=== PATIENT | female | born 1935 | race Caucasian/White ===

== ENCOUNTER 2017-01-13 02:32 | Emergency (ER) | payer MEDICARE, OTHER ==
[2017-01-13 03:04] VITALS: BP 179/69
--- NOTE | 2017-01-13 03:18 | EDM.PDOC ---
ED HPI GENERAL MEDICAL PROBLEM - General Chief Complaint: Cardiovascular Problem Stated Complaint: HIGH BP Time Seen by Provider: 01/13/17 02:55 Source of Information: Reports: Patient History Limitations: Reports: No Limitations - History of Present Illness INITIAL COMMENTS - FREE TEXT/NARRATIVE: ED with family, reports waking with some dizziness and pain to nape of neck tonight. Checked BP and elevated 180's at home, Notified daughter and brought to ED. Recently had metoprolol decreased by PCP as BP low and HR in 40's. Has had US done but unsure of what, awaiting results and has follow up scheduled. Admits hx anxiety. No chest pain or palpations noted. o nausea, no blurring of vision. Onset: Today Duration: Hour(s): Severity: Mild Worsens with: Reports: Movement Associated Symptoms: Denies: Confusion, Diaphoresis, Fever/Chills, Nausea/ Vomiting, Shortness of Breath, Weakness - Related Data Allergies Allergy/AdvReac Type Severity Reaction Status Date / Time Penicillins Allergy Diarrhea Verified 01/13/17 03:05 Home Meds: Home Meds Chlorthalidone 12.5 mg PO DAILY 01/13/17 [History] Losartan [Cozaar] 50 mg PO DAILY 01/13/17 [History] Metoprolol Tartrate [Metoprolol Tartrate] 25 mg PO BID 01/13/17 [History] Past Medical History Cardiovascular History: Reports: Hypertension - Past Surgical History GI Surgical History: Reports: Cholecystectomy Social & Family History - Family History Cardiac: Reports: OK Oncologic: Reports: Breast - Tobacco Use Smoking Status *Q: Never Smoker Second Hand Smoke Exposure: Yes - Caffeine Use Caffeine Use: Reports: Coffee - Recreational Drug Use Recreational Drug Use: No ED ROS GENERAL - Review of Systems Review Of Systems: See Below Constitutional: Reports: No Symptoms HEENT: Reports: No Symptoms Respiratory: Reports: No Symptoms Cardiovascular: Reports: Blood Pressure Problem GI/Abdominal: Reports: No Symptoms Musculoskeletal: Reports: No Symptoms Skin: Reports: No Symptoms Neurological: Reports: Headache. Denies: Syncope, Tingling, Tremors, Weakness, Change in Speech, Gait Disturbance Psychiatric: Reports: Anxiety ED EXAM, GENERAL - Physical Exam Exam: See Below Exam Limited By: No Limitations General Appearance: Alert, Anxious, Mild Distress Eye Exam: Bilateral Eye: EOMI, PERRL (4mm) Ears: Normal External Exam, Normal TMs Nose: Normal Inspection Throat/Mouth: Normal Inspection, Normal Lips, Normal Oropharynx, No Airway Compromise Head: Atraumatic, Normocephalic Neck: Normal Inspection, Non-Tender, Full Range of Motion Respiratory/Chest: No Respiratory Distress, Lungs Clear, Normal Breath Sounds, No Accessory Muscle Use Cardiovascular: Normal Peripheral Pulses, Regular Rate, Rhythm, No Edema GI/Abdominal: Normal Bowel Sounds, Soft Back Exam: Normal Inspection Extremities: Normal Inspection, Normal Range of Motion Neurological: Alert, Oriented, CN II-XII Intact, Normal Cognition, Normal Gait, No Motor/Sensory Deficits Psychiatric: Anxious Skin Exam: Warm, Dry, Intact, Normal Color Course - Vital Signs Last Recorded V/S: Last Vital Signs Temp 97.2 F 01/13/17 02:50 Pulse 86 01/13/17 02:50 Resp 16 01/13/17 02:50 BP 179/69 H 01/13/17 02:50 Pulse Ox 100 01/13/17 02:50 - Orders/Labs/Meds Orders: Active Orders 24 hr Category Date Time Status RT Aerosol Therapy [RC] ASDIRECTED Care 01/13/17 04:59 Active Labs: Laboratory Tests 01/13/17 01/13/17 01/13/17 Range/Units 03:20 03:20 03:20 WBC 3.6 L (5.0-10.0) 10^3/uL RBC 4.87 (4.2-5.4) 10^6/uL Hgb 14.5 (12.0-16.0) g/dL Hct 41.0 (37.0-47.0) % MCV 84.2 (80-100) fL MCH 29.8 (27.0-34.0) pg MCHC 35.4 H (33.0-35.0) g/dL Plt Count 156 (150-450) 10^3/uL Neut % (Auto) 57.1 (42.2-75.2) % Lymph % (Auto) 28.6 (20.5-50.1) % Liberty % (Auto) 12.9 H (2-8) % Eos % (Auto) 1.1 (1.0-3.0) % Baso % (Auto) 0.3 (0.0-1.0) % PT (9.0-12.0) SEC INR (0.9-1.2) Sodium 132 L (135-145) mmol/L Potassium 3.7 (3.6-5.0) mmol/L Chloride 96 L (101-111) mmol/L Carbon Dioxide 24.0 (21.0-31.0) mmol/L Anion Gap 15.7 BUN 12 (7-18) mg/dL Creatinine 0.6 (0.6-1.3) mg/dL Est Cr Clr Drug Dosing 53.90 mL/min Estimated GFR (MDRD) > 60 BUN/Creatinine Ratio 20.00 Glucose 110 H (74-105) mg/dL Calcium 9.9 (8.4-10.2) mg/dl Total Bilirubin 1.0 (0.2-1.0) mg/dL AST 24 (10-42) IU/L ALT 27 (10-60) IU/L Alkaline Phosphatase 77 (42-121) IU/L CK-MB (CK-2) 2.10 (0.4-4.7) ng/mL Troponin I < 0.02 (0.00-0.02) ng/ml B-Natriuretic Peptide 88 (0-100) pg/ml Total Protein 7.2 (6.7-8.2) g/dl Albumin 4.7 (3.2-5.5) g/dl Globulin 2.5 Albumin/Globulin Ratio 1.88 08/03/17 Range/Units 03:20 WBC (5.0-10.0) 10^3/uL RBC (4.2-5.4) 10^6/uL Hgb (12.0-16.0) g/dL Hct (37.0-47.0) % MCV (80-100) fL MCH (27.0-34.0) pg MCHC (33.0-35.0) g/dL Plt Count (150-450) 10^3/uL Neut % (Auto) (42.2-75.2) % Lymph % (Auto) (20.5-50.1) % Liberty % (Auto) (2-8) % Eos % (Auto) (1.0-3.0) % Baso % (Auto) (0.0-1.0) % PT 9.4 (9.0-12.0) SEC INR 0.9 (0.9-1.2) Sodium (135-145) mmol/L Potassium (3.6-5.0) mmol/L Chloride (101-111) mmol/L Carbon Dioxide (21.0-31.0) mmol/L Anion Gap BUN (7-18) mg/dL Creatinine (0.6-1.3) mg/dL Est Cr Clr Drug Dosing mL/min Estimated GFR (MDRD) BUN/Creatinine Ratio Glucose (74-105) mg/dL Calcium (8.4-10.2) mg/dl Total Bilirubin (0.2-1.0) mg/dL AST (10-42) IU/L ALT (10-60) IU/L Alkaline Phosphatase (42-121) IU/L CK-MB (CK-2) (0.4-4.7) ng/mL Troponin I (0.00-0.02) ng/ml B-Natriuretic Peptide (0-100) pg/ml Total Protein (6.7-8.2) g/dl Albumin (3.2-5.5) g/dl Globulin Albumin/Globulin Ratio Meds: Medications Discontinued Medications Generic Name Dose Route Start Last Admin Trade Name Freq PRN Reason Stop Dose Admin Albuterol/Ipratropium 3 ml 01/13/17 04:59 01/13/17 05:06 Duoneb 3.0-0.5 Mg/3 Ml NEB 01/13/17 05:00 3 ml ONETIME ONE Administration Famotidine 20 mg 01/13/17 04:22 01/13/17 04:26 Pepcid IVPUSH 01/13/17 04:23 20 mg ONETIME ONE Administration Labetalol HCl 10 mg 01/13/17 03:39 01/13/17 04:16 Normodyne IVPUSH 01/13/17 03:40 10 mg NOW ONE Administration Protocol Lorazepam 0.5 mg 01/13/17 04:55 01/13/17 05:06 Ativan IVPUSH 01/13/17 04:56 0.5 mg ONETIME ONE Administration Lorazepam Confirm 01/13/17 05:36 Ativan Administered 01/13/17 05:37 Dose 0.5 mg .ROUTE .STK-MED ONE Lorazepam 0.5 mg 01/13/17 05:36 Ativan PO 01/13/17 05:37 .STK-MED ONE Ondansetron HCl 4 mg 01/13/17 04:22 01/13/17 04:28 Zofran IV 01/13/17 04:23 4 mg ONETIME ONE Administration - Radiology Interpretation Free Text/Narrative:: head CT negative, - Re-Assessments/Exams Free Text/Narrative Re-Assessment/Exam: BP improved, HR stable 70-80's symptoms resolved. Less anxious after CT results discussed. Neuro intact. Departure - Departure Time of Disposition: 05:53 Disposition: Home, Self-Care 01 Condition: Good Clinical Impression: Hypertensive heart disease Qualifiers: Heart failure presence: without heart failure Qualified Code(s): I11.9 - Hypertensive heart disease without heart failure Gastroesophageal reflux disease Qualifiers: Esophagitis presence: esophagitis presence not specified Qualified Code(s): K21.9 - Gastro-esophageal reflux disease without esophagitis Instructions: Hypertension, [id number] Forms: ED Department Discharge Additional Instructions: follow up with Dr Ochoa this week low acid foods Urgent follow up if weakness, or chest pain, lorazepam 0.5mg every 8 hours prn severe anxiety - My Orders Last 24 Hours: My Active Orders 01/13/17 04:59 RT Aerosol Therapy [RC] ASDIRECTED - Assessment/Plan Last 24 Hours: My Active Orders 01/13/17 04:59 RT Aerosol Therapy [RC] ASDIRECTED
[2017-01-13] MEDS ORDERED: Labetalol 20 MG/4 ML Syringe IVPUSH ONE (03:39)
[2017-01-13 03:45] LABS: CHLORIDE,CL 96 mmol/L (101-111); SODIUM,NA 132 mmol/L (135-145)
[2017-01-13] MEDS ORDERED: Famotidine 20 MG/2 ML SDV IVPUSH ONE (04:22)
[2017-01-13] MEDS ORDERED: Ondansetron 4 MG/2 ML SDV IV ONE (04:22)
[2017-01-13] MEDS ORDERED: LORazepam 2 MG/ML Syringe IVPUSH ONE (04:55)
[2017-01-13] MEDS ORDERED: Albuterol/Ipratropium 3.0-0.5 MG/3 ML Neb Soln NEB ONE (04:59)
[2017-01-13] MEDS ORDERED: LORazepam 0.5 MG Tab PO ONE (05:36)
[2017-01-13] MEDS ORDERED: LORazepam 0.5 MG Tab ONE (05:36)
--- NOTE | 2017-01-18 09:53 | EKG ---
01/13/2017- DONTE HOLLEY - EKG per my reading shows sinus rhythm at the rate of [address] depression. [facility] /[id number]
== END 2017-01-13 06:13 | disposition home or self-care (01) ==
LOC: DL.ED 02:32
DX: I11.9 Hypertensive heart disease without heart failure (principal); K21.9 Gastro-esophageal reflux disease without esophagitis; Z88.0 Allergy status to penicillin; Z79.899 Other long term (current) drug therapy; Z90.49 Acquired absence of other specified parts of digestive tract
CPT/HCPCS: 36415; 70450; 71010; 80053; 82553; 83880; 84484; 85025; 85610; 93005; 94640; 96374; 96375; 99284; A9270; J2060; J2405; 93010; S0028

== ENCOUNTER 2017-04-01 17:13 | Inpatient (IN) | payer MEDICARE, OTHER ==
[2017-04-01] MEDS ORDERED: Ondansetron 4 MG/2 ML SDV IVPUSH PRN (18:27)
[2017-04-01] MEDS ORDERED: Acetaminophen 325 MG Tab PO PRN (18:27)
[2017-04-01] MEDS ORDERED: hydrALAZINE 20 MG/ML SDV IVPUSH PRN (18:33)
[2017-04-01] MEDS ORDERED: Meclizine 12.5 MG Tab PO PRN (18:35)
[2017-04-01] MEDS: Sodium Chloride 0.9% 1,000 ML IV SCH (19:35)
[2017-04-01] MEDS ORDERED: Omeprazole 20 MG Cap.CR PO SCH (21:00)
[2017-04-01] MEDS ORDERED: Omeprazole 20 MG Cap.CR PO PRN (21:10)
[2017-04-01] MEDS: Lactulose Soln 10 GM/15 ML 30 ML UD Cup PO SCH (21:15)
[2017-04-01] MEDS: Losartan 50 MG Tab PO SCH (21:16)
[2017-04-01] MEDS: Metoprolol Tartrate 25 MG Tab PO SCH ×2 (21:16→21:18)
[2017-04-01] MEDS: Heparin Sodium 5,000 Units/ML Vial SUBCUT SCH (21:17)
--- NOTE | 2017-04-02 00:24 | HP ---
CHIEF COMPLAINT: Dizziness. HISTORY OF PRESENT ILLNESS: Ms. Iram Grajeda is a 81-year-old female with medical history of hypertension, osteoporosis, and recurrent sinusitis. The patient presents to the clinic today complaining of dizziness and constipation. Has not had a bowel movement for 3 days until today. Abdomen feels bloated. Has associated nausea, but no vomiting. She also complains of headache, which is at the left temporal area. It is not bounding. She has been complaining of dizziness for the past 1 month following a fall. She was evaluated with a CT scan and that was unremarkable. Denies chest pain. No fever, chills, or rigors. Denies dysuria, frequency, or micturition. The patient's blood pressure has been quite erratic. She was found to have significantly elevated blood pressure today, systolically 196, and also was found to have severe hyponatremia with sodium of 119 and was referred to the hospital for admission. REVIEW OF SYSTEMS: A 10-point review of systems performed. No other pertinent findings except as noted above. PAST MEDICAL HISTORY: Hypertension, osteoporosis, asymptomatic sinusitis, degenerative disk disease, chronic kidney disease, and anxiety. FAMILY HISTORY: Reviewed and considered noncontributory. SOCIAL HISTORY: Does not smoke. Does not drink alcohol. OBJECTIVE: General: The patient is alert and oriented to place, time, and person. Head: Atraumatic and normocephalic. Ears, Nose, and Throat: Unremarkable. Neck: Supple. Chest: Clear to auscultation. Cardiovascular System: Regular rate and rhythm. Abdomen: Soft and nontender. Extremities: No pedal edema. No finger clubbing. Skin: No rash. Neurologic: Grossly nonfocal. Endocrine: No thyromegaly. Vital Signs: Systolic blood pressure is 196. Oxygenation is normal. LABORATORY DATA: Potassium is 3.4 and sodium is 119. Glucose is 130. Total bilirubin is 1.9. ASSESSMENT: 1. Hypertensive urgency. The patient has severely elevated blood pressure. Anxiety is probably a factor. Recently, there have been some adjustments to her antihypertensives, reduction in metoprolol. That may also be a contributing factor. 2. Hyponatremia. This is likely due to hydrochlorothiazide. She is also on spironolactone. 3. Gastroesophageal reflux disease, asymptomatic at this point. 4. Constipation. PLAN: 1. Admit the patient to medical floor. 2. Start the patient on saline. 3. Check serum sodium every 4 hours. 4. Sample sent for random urine sodium. 5. Random urine creatinine. 6. Intravenous hydralazine. 7. Increase losartan to 100 mg daily. 8. Restart metoprolol. 9. Monitor vital signs every 4 hours. 10.Start the patient on lactulose for constipation. Chart reviewed. Discussed with Dr. Ochoa. [facility] /[id number]
[2017-04-02] MEDS: Heparin Sodium 5,000 Units/ML Vial SUBCUT SCH ×3 (05:20→21:49)
[2017-04-02 08:08] LABS: CHLORIDE,CL 91 mmol/L (101-111); SODIUM,NA 126 mmol/L (135-145)
[2017-04-02] MEDS: Sodium Chloride 0.9% 1,000 ML IV SCH ×2 (08:57→22:01)
[2017-04-02] MEDS: Metoprolol Tartrate 25 MG Tab PO SCH (08:58)
[2017-04-02] MEDS: Losartan 50 MG Tab PO SCH (08:58)
[2017-04-02] MEDS: Lactulose Soln 10 GM/15 ML 30 ML UD Cup PO SCH ×2 (08:58→20:36)
[2017-04-02] MEDS ORDERED: guaiFENesin 600 MG Tab.ER PO SCH (10:00)
[2017-04-02] MEDS ORDERED: Metoprolol Tartrate 25 MG Tab PO ONE (10:25)
[2017-04-02] MEDS: Metoprolol Tartrate 50 MG Tab PO SCH ×2 (10:26→21:50)
--- NOTE | 2017-04-02 10:54 | PN ---
DATE: 04/02/2017 SUBJECTIVE: Patient offers no new complaints today. Did have bowel movement. She was constipated, but had a bowel movement after taking lactulose. Denies dizziness. REVIEW OF SYSTEMS: Constitutional, cardiac, respiratory, gastrointestinal, genitourinary system were reviewed. No other pertinent findings except as noted above. OBJECTIVE: General: Alert and oriented to place, time, and person. Chest: Good air entry bilaterally. Cardiovascular: Regular rate and rhythm. Abdomen: Soft, nontender. Extremities: No edema. LABORATORY DATA: Sodium is 126 today. ASSESSMENT: 1. Severe accelerated hypertension. Blood pressure was markedly elevated. Improving. 2. Hyponatremia. This is secondary to diuretic therapy, hydrochlorothiazide and spironolactone. 3. Gastroesophageal reflux disease. The patient is asymptomatic. 4. Constipation, improved. 5. Dizziness, etiology is unclear. PLAN: 1. Intravenous normal saline at 75 mL an hour. 2. Serial sodium. 3. Obtain repeat basic metabolic panel. 4. Start the patient on fluid restriction of 1500 mL every 24 hours. 5. Continue lactulose. 6. Increase metoprolol to 50 mg b.i.d. Blood pressure is still elevated though improved. [facility] /[id number]
[2017-04-03] MEDS: Heparin Sodium 5,000 Units/ML Vial SUBCUT SCH (05:36)
[2017-04-03 08:34] LABS: SODIUM,NA 134 mmol/L (138-146)
[2017-04-03 08:35] LABS: CHLORIDE,CL 97 mmol/L (98-109)
[2017-04-03] MEDS ORDERED: Magnesium Citrate Solution 296 ML Bottle PO ONE (08:46)
[2017-04-03] MEDS: Lactulose Soln 10 GM/15 ML 30 ML UD Cup PO SCH (08:50)
[2017-04-03] MEDS: Losartan 50 MG Tab PO SCH (08:57)
[2017-04-03] MEDS: Metoprolol Tartrate 50 MG Tab PO SCH (08:58)
[2017-04-03 10:45] VITALS: BP 128/48
--- NOTE | 2017-04-04 06:27 | DISCH ---
FINAL DIAGNOSES: 1. Severe hyponatremia. 2. Severe accelerated hypertension. 3. Gastroesophageal reflux disease. 4. Constipation. 5. Dizziness. SUMMARY OF HOSPITAL COURSE: Ms. Iram Grajeda is a 81-year-old lady with history of hypertension, osteoporosis, and degenerative disease of the spine. She also has chronic kidney disease and anxiety. She presented to the clinical with complaint of dizziness and constipation. The patient was found to have a markedly elevated blood pressure, systolic over 200. She also was found to have hyponatremia, sodium of 119. She got admitted to the hospital and started on intravenous fluid. She had been on chlorthalidone which was felt was responsible for her hyponatremia. This was stopped. We increased the dose of metoprolol, losartan, and other antihypertensives. Blood pressure improved. With intravenous saline, the patient's serum sodium is back to 134. She will have repeat basic metabolic panel in 1 week. The patient did receive lactulose during hospitalization for constipation. Also received magnesium citrate. She has been advised to follow up with primary MD. PHYSICAL EXAMINATION: General: The patient is alert, oriented to place, time, and person. Head: Atraumatic and normocephalic. Ear, Nose, and throat: Unremarkable. Chest: Clear to auscultation. Abdomen: Soft, nontender. Extremities: No pedal edema. No finger clubbing. Skin: No rash. Neuro: Symmetric strength in all extremities. [facility] /[id number]
== END 2017-04-03 14:00 | disposition home or self-care (01) | DRG 641 ==
LOC: DL.MS 17:13 → UNDOADMIN 17:13 → DL.MS 18:27
PROVIDERS: ADMIT Hospitalist; ATTEND Hospitalist
DX: E87.1 Hypo-osmolality and hyponatremia (principal); K21.9 Gastro-esophageal reflux disease without esophagitis; I16.0 Hypertensive urgency; K59.00 Constipation, unspecified; R42 Dizziness and giddiness; M81.0 Age-related osteoporosis without current pathological fracture; I12.9 Hypertensive chronic kidney disease with stage 1 through stage 4 chronic kidney disease, or unspecified chronic kidney disease; N18.9 Chronic kidney disease, unspecified; F41.9 Anxiety disorder, unspecified; T50.0X5A Adverse effect of mineralocorticoids and their antagonists, initial encounter; T50.2X5A Adverse effect of carbonic-anhydrase inhibitors, benzothiadiazides and other diuretics, initial encounter; Z79.899 Other long term (current) drug therapy
CPT/HCPCS: 36415; 71010; 80048; 82570; 84295; 84300; A9270-GY; J7030

== ENCOUNTER 2017-04-15 05:30 | Day surgery (SDC) | payer MEDICARE, OTHER ==
[2017-04-15] MEDS ORDERED: Midazolam 1 MG/ML 2 ML SDV IV ONE ×6 (05:31→06:49)
[2017-04-15] MEDS ORDERED: fentaNYL 100 MCG/2 ML SDV IV ONE ×3 (05:31→06:40)
[2017-04-15] MEDS ORDERED: Dextrose 5%-0.45% NaCl 1,000 ML IV SCH (06:00)
[2017-04-15] MEDS ORDERED: fentaNYL 100 MCG/2 ML SDV ONE (06:16)
[2017-04-15] MEDS ORDERED: Midazolam 1 MG/ML 2 ML SDV ONE (06:16)
--- NOTE | 2017-04-15 07:44 | OR ---
DATE: 04/15/2017 PROCEDURE PERFORMED: Total colonoscopy. INSTRUMENT USED: PCF-H180AL Olympus videocolonoscope. PREMEDICATIONS: Fentanyl 100 mcg intravenous, Versed 2.5 mg intravenous. Nasal O2 cannula. The procedure was done under pulse oximetry, BP recording, and panel monitor. INDICATION: The patient with progressive constipation and related abdominal pain unexplained and not responsive to medical measures. Colonoscopic examination is done for detection of any polypoid lesions and removal, endoscopic hemostasis therapy if needed. DESCRIPTION OF PROCEDURE: Initial rectal exam was unremarkable. Rigid anoscopy was normal. The colonoscope was passed with ease. Few scattered diverticula were noted in the distal left colon along with deformity. The scope was passed with relative ease up to the ileocecal area. Photographs were taken of the normal-appearing cecum identified by double-bulged ileocecal folds. The colon was found to be tortuous and redundant. No bleeding was noted from any of the visualized areas at the commencement of the examination. No stricture. No vascular ectasia. No large isolated ulcerations seen. No evidence of diffuse inflammatory bowel disease in the form of friability, contact bleeding, or ulcerations. No polyp or tumor mass identified. Probing the proximal sides of folds and flexures, using adequate distention and clearing of the stool material, withdrawal of the scope was made, cecum to rectum time over 6 minutes. No bleeding was noted from any of the visualized areas at the completion of the examination. IMPRESSION: Diverticulosis. The patient tolerated the procedure well. [facility] /[id number]
[2017-04-15 10:23] VITALS: BP 165/49
[2017-04-15] MEDS ORDERED: Sodium Chloride 0.9% 10 ML Syringe FLUSH PRN (10:54)
== END 2017-04-15 09:05 | disposition home or self-care (01) ==
LOC: DL.ENDO 05:30
PROVIDERS: ATTEND Internal Medicine Gastroenterology
DX: K57.30 Diverticulosis of large intestine without perforation or abscess without bleeding (principal); I10 Essential (primary) hypertension; F41.1 Generalized anxiety disorder; Z90.49 Acquired absence of other specified parts of digestive tract; Z88.0 Allergy status to penicillin; Z88.1 Allergy status to other antibiotic agents
CPT/HCPCS: 45378; J2250; J3010; J7042

== ENCOUNTER 2017-06-03 12:55 | Inpatient (IN) | payer MEDICARE, OTHER ==
[2017-06-03] MEDS ORDERED: Sodium Chloride 0.9% 10 ML Syringe FLUSH PRN (13:29)
--- NOTE | 2017-06-03 13:29 | EDM.PDOC ---
ED HPI GENERAL MEDICAL PROBLEM - General Chief Complaint: Neuro Symptoms/Deficits Stated Complaint: SODIUM OFF?, [id number] Time Seen by Provider: 06/03/17 13:28 Source of Information: Reports: Patient, Family (daughter), RN, RN Notes Reviewed History Limitations: Reports: Altered Mental Status - History of Present Illness INITIAL COMMENTS - FREE TEXT/NARRATIVE: Arrives from home by POV with pt reporting confusion that began last Tuesday, but improved during the week, then returned 2 days ago. Yesterday pt went [place] a [place] and a friend noticed the confusion and notified the pt's daughter. The daughter noticed the confusion as well and states that it is very similar to when the pt's sodium became very low. Pt reports a Hx of confusion with hyponatremia on several occasions in the past. Denies headache, visual changes, hallucinations, slurred speech, expressive aphasia, swallowing difficulties, numbness, tingling, facial droop, motor or sensory deficits, or any lateralizing neurologic changes. Duration: Waxing/Waning Severity: Moderate Improves with: Reports: None Worsens with: Reports: None Associated Symptoms: Reports: No Other Symptoms - Related Data Allergies Allergy/AdvReac Type Severity Reaction Status Date / Time amoxicillin Allergy Diarrhea Verified 04/15/17 06:04 doxycycline Allergy Diarrhea Verified 04/15/17 06:04 Penicillins Allergy Diarrhea Verified 04/15/17 06:04 Home Meds: Home Meds Sertraline [Zoloft] 25 mg PO BEDTIME 04/01/17 [History] Chlorpheniramine Maleate 4 mg PO BID PRN 04/02/17 [History] Ranitidine [Zantac] 150 mg PO DAILY PRN 04/02/17 [History] Metoprolol Tartrate [Lopressor] 50 mg PO Q12H #90 tablet 04/03/17 [Rx] Calcium Carbonate/Vitamin D3 [Calcium 600 + Vit D 200] 1 tab PO BID 04/14/17 [ History] Losartan [Cozaar] 75 mg PO DAILY 04/14/17 [History] Psyllium Husk [Metamucil] 1 tbsp PO DAILY 06/03/17 [History] Past Medical History HEENT History: Reports: Otitis Media, Sinusitis Cardiovascular History: Reports: Hypertension Respiratory History: Reports: None Gastrointestinal History: Reports: GERD Genitourinary History: Reports: Other (See Below) Other Genitourinary History: CKD stage II 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: , Spontaneous Musculoskeletal History: Reports: Osteoporosis, Other (See Below) Other Musculoskeletal History: degenerative joint disease Neurological History: Reports: None Psychiatric History: Reports: Anxiety, Panic Attack Endocrine/Metabolic History: Reports: Other (See Below) (Confusion with hyponatremia) Hematologic History: Reports: None Immunologic History: Reports: None Oncologic (Cancer) History: Reports: None Dermatologic History: Reports: Psoriasis - Infectious Disease History Infectious Disease History: Reports: Chicken Pox, Measles, Mumps - Past Surgical History Head Surgeries/Procedures: Reports: None HEENT Surgical History: Reports: None Cardiovascular Surgical History: Reports: None Respiratory Surgical History: Reports: None GI Surgical History: Reports: Appendectomy, Cholecystectomy, Colonoscopy Female Surgical History: Reports: None Musculoskeletal Surgical History: Reports: None Social & Family History - Family History Family Medical History: Noncontributory Cardiac: Reports: AR Oncologic: Reports: Breast - Tobacco Use Smoking Status *Q: Never Smoker Second Hand Smoke Exposure: No - Caffeine Use Caffeine Use: Reports: Tea - Recreational Drug Use Recreational Drug Use: No Drug Use in Last 12 Months: No - Living Situation & Occupation Living situation: Reports: Alone Occupation: Retired ED ROS GENERAL - Review of Systems Review Of Systems: ROS reveals no pertinent complaints other than HPI. ED EXAM, GENERAL - Physical Exam Exam: See Below Exam Limited By: Altered Mental Status General Appearance: Alert, WD/WN, No Apparent Distress Eye Exam: Bilateral Eye: EOMI, Normal Fundi, Normal Inspection, PERRL Ears: Normal External Exam, Normal Canal, Hearing Grossly Normal, Normal TMs Nose: Normal Inspection, Normal Mucosa, No Blood Throat/Mouth: Normal Inspection, Normal Lips, Normal Teeth, Normal Gums, Normal Oropharynx, Normal Voice, No Airway Compromise Head: Atraumatic, Normocephalic Neck: Normal Inspection, Supple, Non-Tender, Full Range of Motion Respiratory/Chest: No Respiratory Distress, Lungs Clear, Normal Breath Sounds, No Accessory Muscle Use, Chest Non-Tender Cardiovascular: Normal Peripheral Pulses, Regular Rate, Rhythm, No Edema, No Gallop, No JVD, No Murmur, No Rub GI/Abdominal: Normal Bowel Sounds, Soft, Non-Tender, No Distention Back Exam: Normal Inspection Extremities: Normal Inspection Neurological: Alert, Oriented (oriented to person, place), CN II-XII Intact, Normal Cognition, Normal Gait, No Motor/Sensory Deficits Psychiatric: Normal Affect, Normal Mood Skin Exam: Warm, Dry, Intact, Normal Color, No Rash Course - Vital Signs Last Recorded V/S: Last Vital Signs Temp 36.9 C 06/03/17 15:24 Pulse 57 L 06/03/17 15:24 Resp 16 06/03/17 15:24 BP 184/57 H 06/03/17 15:24 Pulse Ox 100 06/03/17 15:24 - Orders/Labs/Meds Orders: Active Orders 24 hr Category Date Time Status Peripheral IV Care [RC] . DIRECTED Care 06/03/17 13:29 Active TROPONIN I [CHEM] Stat Lab 06/03/17 16:10 Ordered Sodium Chloride 0.9% [Saline Flush] Med 06/03/17 13:29 Active 10 ml FLUSH ASDIRECTED PRN Peripheral IV Insertion Adult [OM.PC] Stat Oth 06/03/17 13:29 Ordered Medication Orders Sodium Chloride (Saline Flush) 10 ml FLUSH ASDIRECTED PRN PRN Reason: Keep Vein Open Labs: Laboratory Tests 06/03/17 06/03/17 06/03/17 Range/Units 13:14 13:41 13:41 WBC 5.4 (5.0-10.0) 10^3/uL RBC 4.46 (4.2-5.4) 10^6/uL Hgb 13.3 (12.0-16.0) g/dL Hct 38.8 (37.0-47.0) % MCV 87.0 (80-100) fL MCH 29.8 (27.0-34.0) pg MCHC 34.3 (33.0-35.0) g/dL Plt Count 156 (150-450) 10^3/uL Neut % (Auto) 71.6 (42.2-75.2) % Lymph % (Auto) 15.8 L (20.5-50.1) % [place] % (Auto) 11.7 H (2-8) % Eos % (Auto) 0.7 L (1.0-3.0) % Baso % (Auto) 0.2 (0.0-1.0) % Sodium 132 L (135-145) mmol/L Potassium 3.5 L (3.6-5.0) mmol/L Chloride 97 L (101-111) mmol/L Carbon Dioxide 29.0 (21.0-31.0) mmol/L Anion Gap 9.5 BUN 10 (7-18) mg/dL Creatinine 0.6 (0.6-1.3) mg/dL Est Cr Clr Drug Dosing 53.90 mL/min Estimated GFR (MDRD) > 60 BUN/Creatinine Ratio 16.66 Glucose 167 H (74-105) mg/dL POC Glucose 176 H (83-110) mg/dl Calcium 9.3 (8.4-10.2) mg/dl Total Bilirubin 1.0 (0.2-1.0) mg/dL AST 32 (10-42) IU/L ALT 41 (10-60) IU/L Alkaline Phosphatase 85 (42-121) IU/L Total Protein 6.6 L (6.7-8.2) g/dl Albumin 4.2 (3.2-5.5) g/dl Globulin 2.4 Albumin/Globulin Ratio 1.75 Urine Color (YELLOW) Urine Appearance (CLEAR) Urine pH (5.0-9.0) Ur Specific [place] (1.005-1.030) Urine Protein (NEGATIVE) Urine Glucose (UA) (NEGATIVE) Urine Ketones (NEGATIVE) Urine Occult Blood (NEGATIVE) Urine Nitrite (NEGATIVE) Urine Bilirubin (NEGATIVE) Urine Urobilinogen (0.2-1.0) mg/dL Ur Leukocyte Esterase (NEGATIVE) Urine RBC /HPF Urine WBC (0-5/HPF) /HPF Ur Epithelial Cells /HPF Urine Bacteria (0-FEW/HPF) /HPF Urine Mucus /LPF Urine Opiates Screen (NEGATIVE) Ur Oxycodone Screen (NEGATIVE) Urine Methadone Screen (NEGATIVE) Ur Barbiturates Screen (NEGATIVE) U Tricyclic Antidepress (NEGATIVE) Ur Phencyclidine Scrn (NEGATIVE) Ur Amphetamine Screen (NEGATIVE) U Methamphetamines Scrn (NEGATIVE) Urine MDMA Screen (NEGATIVE) U Benzodiazepines Scrn (NEGATIVE) Urine Cocaine Screen (NEGATIVE) U Marijuana (THC) Screen (NEGATIVE) 06/03/17 06/03/17 Range/Units 14:49 14:49 WBC (5.0-10.0) 10^3/uL RBC (4.2-5.4) 10^6/uL Hgb (12.0-16.0) g/dL Hct (37.0-47.0) % MCV (80-100) fL MCH (27.0-34.0) pg MCHC (33.0-35.0) g/dL Plt Count (150-450) 10^3/uL Neut % (Auto) (42.2-75.2) % Lymph % (Auto) (20.5-50.1) % [place] % (Auto) (2-8) % Eos % (Auto) (1.0-3.0) % Baso % (Auto) (0.0-1.0) % Sodium (135-145) mmol/L Potassium (3.6-5.0) mmol/L Chloride (101-111) mmol/L Carbon Dioxide (21.0-31.0) mmol/L Anion Gap BUN (7-18) mg/dL Creatinine (0.6-1.3) mg/dL Est Cr Clr Drug Dosing mL/min Estimated GFR (MDRD) BUN/Creatinine Ratio Glucose (74-105) mg/dL POC Glucose (83-110) mg/dl Calcium (8.4-10.2) mg/dl Total Bilirubin (0.2-1.0) mg/dL AST (10-42) IU/L ALT (10-60) IU/L Alkaline Phosphatase (42-121) IU/L Total Protein (6.7-8.2) g/dl Albumin (3.2-5.5) g/dl Globulin Albumin/Globulin Ratio Urine Color Yellow (YELLOW) Urine Appearance Cloudy (CLEAR) Urine pH 7.0 (5.0-9.0) Ur Specific [place] 1.010 (1.005-1.030) Urine Protein Negative (NEGATIVE) Urine Glucose (UA) Negative (NEGATIVE) Urine Ketones Negative (NEGATIVE) Urine Occult Blood Small H (NEGATIVE) Urine Nitrite Negative (NEGATIVE) Urine Bilirubin Negative (NEGATIVE) Urine Urobilinogen 0.2 (0.2-1.0) mg/dL Ur Leukocyte Esterase Negative (NEGATIVE) Urine RBC 10-20 H /HPF Urine WBC 0-5 (0-5/HPF) /HPF Ur Epithelial Cells Few /HPF Urine Bacteria Rare (0-FEW/HPF) /HPF Urine Mucus Rare /LPF Urine Opiates Screen Negative (NEGATIVE) Ur Oxycodone Screen Negative (NEGATIVE) Urine Methadone Screen Negative (NEGATIVE) Ur Barbiturates Screen Negative (NEGATIVE) U Tricyclic Antidepress Negative (NEGATIVE) Ur Phencyclidine Scrn Negative (NEGATIVE) Ur Amphetamine Screen Negative (NEGATIVE) U Methamphetamines Scrn Negative (NEGATIVE) Urine MDMA Screen Negative (NEGATIVE) U Benzodiazepines Scrn Negative (NEGATIVE) Urine Cocaine Screen Negative (NEGATIVE) U Marijuana (THC) Screen Negative (NEGATIVE) Meds: Medications Generic Name Dose Route Start Last Admin Trade Name Freq PRN Reason Stop Dose Admin Sodium Chloride 10 ml 06/03/17 13:29 Saline Flush FLUSH ASDIRECTED PRN Keep Vein Open - Radiology Interpretation Free Text/Narrative:: CT Head: no acute process per Rad. report. Departure - Departure Time of Disposition: 16:04 (Admitted to Dr. Montes) Disposition: Refer to Observation Condition: Fair Clinical Impression: Altered mental status Qualifiers: Altered mental status type: disorientation Qualified Code(s): R41.0 - Disorientation, unspecified - Discharge Information Forms: ED Department Discharge - My Orders Last 24 Hours: My Active Orders 06/03/17 13:29 Peripheral IV Care [RC] . DIRECTED Sodium Chloride 0.9% [Saline Flush] 10 ml FLUSH ASDIRECTED PRN Peripheral IV Insertion Adult [OM.PC] Stat 06/03/17 16:10 TROPONIN I [CHEM] Stat - Assessment/Plan Last 24 Hours: My Active Orders 06/03/17 13:29 Peripheral IV Care [RC] . DIRECTED Sodium Chloride 0.9% [Saline Flush] 10 ml FLUSH ASDIRECTED PRN Peripheral IV Insertion Adult [OM.PC] Stat 06/03/17 16:10 TROPONIN I [CHEM] Stat
[2017-06-03 14:06] LABS: CHLORIDE,CL 97 mmol/L (101-111); SODIUM,NA 132 mmol/L (135-145)
[2017-06-03] MEDS ORDERED: Acetaminophen 325 MG Tab PO PRN (16:53)
[2017-06-03] MEDS ORDERED: Ondansetron 4 MG/2 ML SDV IVPUSH PRN (16:53)
[2017-06-03] MEDS ORDERED: Polyethylene Glycol 3350 Powder 17 GM Packet PO PRN (16:53)
[2017-06-03] MEDS ORDERED: RANITIDINE 150 MG PO PRN (16:59)
[2017-06-03] MEDS ORDERED: Metoprolol Tartrate 50 MG Tab PO SCH (17:00)
[2017-06-03] MEDS ORDERED: Sodium Chloride 0.9% 1,000 ML IV SCH (17:00)
--- NOTE | 2017-06-03 18:04 | PCM.HP ---
H&P History of Present Illness - General Date of Service: 06/03/17 Admit Problem/Dx: Admission Diagnosis/Problem Admission Diagnosis/Problem Confusion Source of Information: Patient History Limitations: Reports: No Limitations - History of Present Illness Initial Comments - Free Text/Narative: 81-year-old female with the past medical history of hypertension, osteoporosis, dizziness, confusion, chronic kidney disease, arthritis, anxiety present to the emergency room for having confusion started last Tuesday for 2 days then get better then started again yesterday. She was at [facility] yesterday and was noticed by a friend that she was confused. The friend contacted daughter. Daughter saw the patient and she stated that she had similar confusion in the past when she had low sodium. Patient denies fever, chills, nausea, vomiting, chest pain, shortness breath, palpitation, headache, change in vision, abdominal pain, diarrhea, constriction, blood in stool, black stool, urinary symptoms, unilateral weakness/numbness/tingling, rash, lower extreme edema, any other symptoms or concern. WBC 5.4 hemoglobin 13.3. Sodium 132. Potassium 3.5. Chloride 97. Creatinine 0.6. UN 10. Blood glucose 176. Troponin less than 0.02. LFTs are normal. UA is negative for nitrate and leukocyte esterase. Urine RBC 10-20. Urine WBC 0-5. Urine bacteria rare. Urine drug screen is negative. CT of head reported no acute findings. Patient was admitted to the floor for observation. - Related Data Allergies/Adverse Reactions: Allergies Allergy/AdvReac Type Severity Reaction Status Date / Time amoxicillin Allergy Diarrhea Verified 06/03/17 16:54 doxycycline Allergy Diarrhea Verified 06/03/17 16:54 Penicillins Allergy Diarrhea Verified 06/03/17 16:54 Home Medications: Home Meds Sertraline [Zoloft] 25 mg PO BEDTIME 04/01/17 [History] Chlorpheniramine Maleate 4 mg PO BID PRN 04/02/17 [History] Ranitidine [Zantac] 150 mg PO DAILY PRN 04/02/17 [History] Metoprolol Tartrate [Lopressor] 50 mg PO Q12H #90 tablet 04/03/17 [Rx] Calcium Carbonate/Vitamin D3 [Calcium 600 + Vit D 200] 1 tab PO BID 04/14/17 [ History] Losartan [Cozaar] 75 mg PO DAILY 04/14/17 [History] Psyllium Husk [Metamucil] 1 tbsp PO DAILY 06/03/17 [History] Past Medical History HEENT History: Reports: Otitis Media, Sinusitis Cardiovascular History: Reports: Hypertension Respiratory History: Reports: COPD Gastrointestinal History: Reports: GERD Genitourinary History: Reports: Other (See Below) Other Genitourinary History: CKD stage II 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: , Spontaneous Musculoskeletal History: Reports: Osteoporosis, Other (See Below) Other Musculoskeletal History: degenerative joint disease Neurological History: Reports: None Psychiatric History: Reports: Anxiety, Panic Attack Endocrine/Metabolic History: Reports: Osteoporosis Hematologic History: Reports: None Other Hematologic History: hyponatremia requiring hospitalization Immunologic History: Reports: None Oncologic (Cancer) History: Reports: None Dermatologic History: Reports: Psoriasis - Infectious Disease History Infectious Disease History: Reports: Chicken Pox - Past Surgical History Head Surgeries/Procedures: Reports: None HEENT Surgical History: Reports: None Cardiovascular Surgical History: Reports: None Respiratory Surgical History: Reports: None GI Surgical History: Reports: Appendectomy, Cholecystectomy, Colonoscopy Female Surgical History: Reports: None Musculoskeletal Surgical History: Reports: None Social & Family History - Family History Family Medical History: Noncontributory Cardiac: Reports: OR Oncologic: Reports: Breast - Tobacco Use Smoking Status *Q: Never Smoker Second Hand Smoke Exposure: No - Caffeine Use Caffeine Use: Reports: Coffee, Tea - Recreational Drug Use Recreational Drug Use: No Drug Use in Last 12 Months: No - Living Situation & Occupation Living situation: Reports: Alone Occupation: Retired H&P Review of Systems - Review of Systems: Review Of Systems: ROS reveals no pertinent complaints other than HPI. Exam - Exam Exam: See Below - Vital Signs Vital Signs: Last Vital Signs Temp 36.9 C 06/03/17 15:24 Pulse 57 L 06/03/17 15:24 Resp 16 06/03/17 15:24 BP 184/57 H 06/03/17 15:24 Pulse Ox 100 06/03/17 15:24 Weight: 44.77 kg - Exam General: Alert, Oriented (Patient was oriented to person and place. She does not know the date but she knew we are in May but thought in 2017), Cooperative. No: Mild Distress, Moderate Distress, Severe Distress, Sedated, Lethargic, Obtunded HEENT: Conjunctiva Clear, EACs Clear, EOMI, Hearing Intact, Mucosa Moist & Ririe , Nares Patent, Normal Nasal Septum, Posterior Pharynx Clear, Pupils Equal, Pupils Reactive, TMs Clear Neck: Supple, Trachea Midline Lungs: Clear to Auscultation, Normal Respiratory Effort. No: Decreased Breath Sounds, Crackles, Rales, Rhonchi, Rub, Stridor, Wheezing Cardiovascular: Regular Rate, Regular Rhythm, Normal S1, Normal S2 GI/Abdominal Exam: Normal Bowel Sounds, Soft, Non-Tender, No Organomegaly, No Distention, No Abnormal Bruit, No Mass (Female) Exam: Deferred Rectal (Female) Exam: Deferred Back Exam: Normal Inspection, Full Range of Motion. No: CVA Tenderness (L), CVA Tenderness (R) Extremities: Normal Inspection, Normal Range of Motion, Non-Tender, No Pedal Edema, Normal Capillary Refill Skin: Dry, Intact. No: Rash Neurological: Cranial Nerves Intact, Normal Speech, Normal Tone, Sensation Intact Neuro Extensive - Mental Status: Alert Psychiatric: Alert, Normal Affect, Normal Mood. No: Anxious, Depressed, Suicidal Ideation, Homicidal Ideation - Patient Data Result Diagrams: 06/03/17 13:41 06/03/17 13:41 *Q Meaningful Use (ADM) - VTE *Q VTE Criteria *Q: - Stroke *Q Stroke Criteria *Q: - AMI *Q AMI Criteria *Q: - Problem List (1) Essential hypertension SNOMED Code(s): 75328770 ICD Code: I10 - ESSENTIAL (PRIMARY) HYPERTENSION Status: Chronic Current Visit: Yes (2) Altered mental status SNOMED Code(s): 020900691 ICD Code: R41.82 - ALTERED MENTAL STATUS, UNSPECIFIED Status: Acute Current Visit: Yes Qualifiers: Altered mental status type: disorientation Qualified Code(s): R41.0 - Disorientation, unspecified (3) Gastroesophageal reflux disease SNOMED Code(s): 845951607 ICD Code: K21.9 - GASTRO-ESOPHAGEAL REFLUX DISEASE WITHOUT ESOPHAGITIS Status: Chronic Current Visit: No Qualifiers: Esophagitis presence: esophagitis presence not specified Qualified Code(s) : K21.9 - Gastro-esophageal reflux disease without esophagitis (4) Chronic kidney disease SNOMED Code(s): 309708926 ICD Code: N18.9 - CHRONIC KIDNEY DISEASE, UNSPECIFIED Status: Chronic Current Visit: Yes (5) Recurrent sinusitis SNOMED Code(s): 321241968 ICD Code: J32.9 - CHRONIC SINUSITIS, UNSPECIFIED Status: Chronic Current Visit: Yes Problem List Initiated/Reviewed/Updated: Yes Orders Last 24hrs: Active Orders 24 hr Category Date Time Status Patient Status [ADT] Routine ADT 06/03/17 16:53 Active Antiembolic Devices [RC] PER UNIT ROUTINE Care 06/03/17 16:55 Active Cardiac Monitoring [RC] CONTINUOUS Care 06/03/17 16:54 Active Height and Weight [RC] DAILY Care 06/03/17 16:53 Active Intake and Output [RC] Q6H Care 06/03/17 16:54 Active Notify Provider Vital Signs [RC] ASDIRECTED Care 06/03/17 16:54 Active Oxygen Therapy [RC] PRN Care 06/03/17 16:53 Active Up With Assistance [RC] ASDIRECTED Care 06/03/17 16:53 Active VTE/DVT Education [RC] PER UNIT ROUTINE Care 06/03/17 16:53 Active Vital Signs [RC] Q4H Care 06/03/17 16:53 Active Heart Healthy Diet [DIET] Diet 06/03/17 Breakfast Active BASIC METABOLIC PANEL,BMP [CHEM] AM Lab 06/04/17 05:11 Ordered CBC WITH AUTO DIFF [HEME] AM Lab 06/04/17 05:11 Ordered CULTURE URINE [RM] Stat Lab 06/03/17 14:49 Received Acetaminophen [Tylenol] Med 06/03/17 16:53 Active 650 mg PO Q4H PRN Calcium Carbonate/Vitamin D3 Med 06/03/17 21:00 Pending 1 tab PO BID Losartan [Cozaar] Med 06/04/17 09:00 Active 75 mg PO DAILY Metoprolol Tartrate [Lopressor] Med 06/03/17 21:00 Active 50 mg PO BID@0900,2100 Ondansetron [Zofran] Med 06/03/17 16:53 Active 4 mg IVPUSH Q6H PRN Polyethylene Glycol 3350 [MiraLAX] Med 06/03/17 16:53 Active 17 gm PO DAILY PRN Ranitidine [Zantac] Med 06/03/17 16:59 Pending 150 mg PO DAILY PRN Sertraline [Zoloft] Med 06/03/17 21:00 Pending 25 mg PO BEDTIME Sodium Chloride 0.9% [Normal Saline] 1,000 ml Med 06/03/17 17:00 Active IV ASDIRECTED Antiembolic Hose [OM.PC] Per Unit Routine Oth 06/03/17 16:55 Ordered Sequential Compression Device [OM.PC] Per Unit Routine Oth 06/03/17 16:55 Ordered Resuscitation Status Routine Resus Stat 06/03/17 16:53 Ordered Medication Orders Acetaminophen (Tylenol) 650 mg PO Q4H PRN PRN Reason: Pain (Mild 1-3)/fever Sodium Chloride (Normal Saline) 1,000 mls @ 125 mls/hr IV ASDIRECTED MALACHI Stop: 06/04/17 00:59 Losartan Potassium (Cozaar) 75 mg PO DAILY MALACHI Metoprolol Tartrate (Lopressor) 50 mg PO BID@0900,2100 MALACHI Calcium Carbonate/ (Vitamin D3 1 Tab) 1 tab PO BID MALACHI Ranitidine [Zantac] (150mg) 150 mg PO DAILY PRN PRN Reason: Heartburn Sertraline [Zoloft] (25mg) 25 mg PO BEDTIME MALACHI Ondansetron HCl (Zofran) 4 mg IVPUSH Q6H PRN PRN Reason: Nausea/Vomiting Polyethylene Glycol (Miralax) 17 gm PO DAILY PRN PRN Reason: Constipation Sodium Chloride (Saline Flush) 10 ml FLUSH ASDIRECTED PRN PRN Reason: Keep Vein Open Assessment/Plan Comment:: Impression 81-year-old female who presented with recurrent altered mental status. It seems to be multifactorial. However her blood pressure is elevated. Patient seems to have hypertensive urgency. Patient lives by herself. One of her medications on the list is chlorpheniramine which could cause confusion however patient stated that she hasn't taken it for a long time. Plan Hydralazine 25 mg by mouth every 6 hours as needed for systolic blood pressure better than 160 and/or the side blood pressure greater than 110. Continue metoprolol and losartan Stop chlorpheniramine Start IV fluid of normal saline at 1 25 mL per hour for 1 L. Reassess fluid need in the morning Up with real estate administrative assistant Intake and output Daily weight Continue home medication except chlorpheniramine MARIAH hose and SCDs for DVT prophylaxis Patient wants to be full code Plan of care was discussed with patient and she verbalized understanding agreed with it
[2017-06-03] MEDS ORDERED: SERTRALINE 25 MG PO SCH (21:00)
[2017-06-03] MEDS: Metoprolol Tartrate 50 MG Tab PO SCH (21:28)
[2017-06-03] MEDS: hydrALAZINE 25 MG Tab PO PRN (23:50)
[2017-06-04] MEDS: hydrALAZINE 25 MG Tab PO PRN (06:36)
[2017-06-04 06:44] LABS: CHLORIDE,CL 105 mmol/L (101-111); SODIUM,NA 136 mmol/L (135-145)
[2017-06-04] MEDS: Metoprolol Tartrate 50 MG Tab PO SCH ×2 (08:47→20:53)
[2017-06-04] MEDS ORDERED: Losartan 25 MG Tab PO SCH (09:00)
[2017-06-04] MEDS ORDERED: Potassium Chloride 10 MEQ Tab.ER PO ONE (10:21)
[2017-06-04] MEDS ORDERED: Losartan 25 MG Tab PO ONE (10:45)
[2017-06-04] MEDS ORDERED: Metoprolol Tartrate 50 MG Tab PO ONE (10:45)
--- NOTE | 2017-06-04 11:30 | PCM.PN ---
- General Info Date of Service: 06/04/17 Admission Dx/Problem (Free Text): Admission Diagnosis/Problem Admission Diagnosis/Problem Confusion/uncontrolled hypertension Subjective Update: Pt feels better today and still has confusion, unable to sleep last night and BP is still elevated. she has her AM meals and had BM, She does not have any nausea or vomiting. Functional Status: Reports: Pain Controlled, Tolerating Diet, Ambulating, Urinating - Review of Systems General: Reports: Appetite (good). Denies: Fever, Weakness, Chills HEENT: Denies: Sinus Congestion, Sore Throat, Visual Changes Pulmonary: Denies: Shortness of Breath, Cough, Sputum, Wheezing Cardiovascular: Denies: Chest Pain, Dyspnea on Exertion, Edema, Lightheadedness Gastrointestinal: Denies: Abdominal Pain, Diarrhea, Nausea, Vomiting Genitourinary: Denies: Dysuria, Frequency, Burning, Flank Pain Musculoskeletal: Denies: Neck Pain, Back Pain, Leg Pain, Foot Pain Skin: Denies: Jaundice, Dryness, Bruising, Pruritis, Rash Neurological: Reports: Confusion. Denies: Tingling, Tremors Psychiatric: Reports: Confusion, Depression, Anxiety - Patient Data Vitals - Most Recent: Last Vital Signs Temp 37.0 C 06/04/17 08:13 Pulse 72 06/04/17 08:47 Resp 20 06/04/17 08:13 BP 182/63 H 06/04/17 08:47 Pulse Ox 97 06/04/17 08:13 Weight - Most Recent: 44.169 kg I&O - Last 24 Hours: Intake & Output 06/03/17 06/04/17 06/04/17 22:59 06:59 14:59 Intake Total 1340 1251 Output Total 1875 950 Balance -535 301 Lab Results Last 24 Hours: Laboratory Results - last 24 hr 06/04/17 06/04/17 Range/Units 06:02 06:02 WBC 5.4 (5.0-10.0) 10^3/uL RBC 4.63 (4.2-5.4) 10^6/uL Hgb 13.8 (12.0-16.0) g/dL Hct 40.2 (37.0-47.0) % MCV 86.8 (80-100) fL MCH 29.8 (27.0-34.0) pg MCHC 34.3 (33.0-35.0) g/dL Plt Count 160 (150-450) 10^3/uL Neut % (Auto) 76.1 H (42.2-75.2) % Lymph % (Auto) 13.2 L (20.5-50.1) % [place] % (Auto) 9.9 H (2-8) % Eos % (Auto) 0.6 L (1.0-3.0) % Baso % (Auto) 0.2 (0.0-1.0) % Sodium 136 (135-145) mmol/L Potassium 3.4 L (3.6-5.0) mmol/L Chloride 105 (101-111) mmol/L Carbon Dioxide 23.0 (21.0-31.0) mmol/L Anion Gap 11.4 BUN 6 L (7-18) mg/dL Creatinine 0.5 L (0.6-1.3) mg/dL Est Cr Clr Drug Dosing 64.48 mL/min Estimated GFR (MDRD) > 60 Glucose 98 (74-105) mg/dL Calcium 8.7 (8.4-10.2) mg/dl Med Orders - Current: Current Medications Acetaminophen (Tylenol) 650 mg PO Q4H PRN PRN Reason: Pain (Mild 1-3)/fever Hydralazine HCl (Apresoline) 50 mg PO Q8H [facility] Losartan Potassium (Cozaar) 100 mg PO DAILY [facility] Metoprolol Tartrate (Lopressor) 100 mg PO BID@0900,2100 [facility] Calcium Carbonate/ (Vitamin D3 1 Tab) 1 tab PO BID [facility] Ondansetron HCl (Zofran) 4 mg IVPUSH Q6H PRN PRN Reason: Nausea/Vomiting Pantoprazole Sodium (Protonix) 40 mg PO ACBREAKFAST [facility] Polyethylene Glycol (Miralax) 17 gm PO DAILY PRN PRN Reason: Constipation Sodium Chloride (Saline Flush) 10 ml FLUSH ASDIRECTED PRN PRN Reason: Keep Vein Open Discontinued Medications Hydralazine HCl (Apresoline) 25 mg PO Q6H PRN PRN Reason: Hypertension Last Admin: 06/04/17 06:36 Dose: 25 mg Sodium Chloride (Normal Saline) 1,000 mls @ 125 mls/hr IV ASDIRECTED [facility] Stop: 06/04/17 00:59 Last Admin: 06/03/17 18:44 Dose: 125 mls/hr Losartan Potassium (Cozaar) 75 mg PO DAILY [facility] Last Admin: 06/04/17 08:47 Dose: 75 mg Losartan Potassium (Cozaar) 25 mg PO ONETIME ONE Stop: 06/04/17 10:46 Metoprolol Tartrate (Lopressor) 50 mg PO Q12H [facility] Last Admin: 06/03/17 20:03 Dose: Not Given Metoprolol Tartrate (Lopressor) 50 mg PO BID@0900,2100 [facility] Last Admin: 06/04/17 08:47 Dose: 50 mg Metoprolol Tartrate (Lopressor) 50 mg PO ONETIME ONE Stop: 06/04/17 10:46 Ranitidine [Zantac] (150mg) 150 mg PO DAILY PRN PRN Reason: Heartburn Sertraline [Zoloft] (25mg) 25 mg PO BEDTIME [facility] Potassium Chloride (Klor-Con 10) 40 meq PO ONETIME ONE Stop: 06/04/17 10:22 - Exam Quality Assessment: DVT Prophylaxis. No: Supplemental Oxygen, Urine Catheter General: Alert (mildly confused ), Cooperative, No Acute Distress HEENT: Pupils Equal, EOMI, Mucous Membr. Moist/[place] Neck: Supple, No JVD, No Thyromegaly Lungs: Clear to Auscultation, Normal Respiratory Effort Cardiovascular: Regular Rate, Regular Rhythm, Murmurs GI/Abdominal Exam: Normal Bowel Sounds, Soft, No Organomegaly, No Distention (Female) Exam: Deferred Back Exam: Normal Inspection, Full Range of Motion Extremities: Normal Inspection, No Pedal Edema Skin: Warm, Dry, Intact Neurological: No New Focal Deficit, Normal Gait, Normal Speech Psy/Mental Status: Alert, Normal Affect, Normal Mood - Problem List Review Problem List Initiated/Reviewed/Updated: Yes - My Orders Last 24 Hours: My Active Orders 06/04/17 10:00 hydrALAZINE [Apresoline] 50 mg PO Q8H 06/04/17 10:45 Pantoprazole [ProTONIX] 40 mg PO ACBREAKFAST 06/04/17 21:00 Metoprolol Tartrate [Lopressor] 100 mg PO BID@0900,2100 06/05/17 09:00 Losartan [Cozaar] 100 mg PO DAILY - Plan Plan:: Impression 81-year-old female who presented with recurrent altered mental status. It seems to be multifactorial, her blood pressure is elevated. Patient seems to have hypertensive urgency. Patient lives by herself. One of her medications on the list is chlorpheniramine which could cause confusion however patient stated that she hasn't taken it for a long time and taken off the med list. stopped also her Zoloft Plan 1. Confusion: The etiology not clear, it's not infectious origin but likely from Medication and uncontrolled BP - Will change Hydralazine to 50 mg TID -Will increase Metoprolol to 100 mg PO BID [ was at 50 mg PO BID] -Will increase Losartan to 100 mg daily [ was at 75 mg daily -will check BP q2 hrs - Stop chlorpheniramine -Stop Zoloft [ was at 25 mg qhs] 2. Uncontrolled hypertension: Her BP today was at 182/63 P 72 -Will increase Metoprolol to 100 mg BID[ was at 50 mg BID] -Will increase Losartan to 100 mg daily [ was at 75 mg daily] -Will start Hydralazine at 50 mg TID - will check BP q2 hrs x 24 hrs 3. Depression with anxiety: will stop Zoloft as it may be the contributor to her confusion -Will need evaluation by psychiatrist once dischsrge 4. GI prophylaxis: Will strt her on Protonix 40 mg daily with breakfast 5. Hypokalemia: This si likely from poor oral intake, will give potassium chloride 40 meq X 1 dose -Recheck potassium in AM 6. DVT prophylaxis: MARIAH murillo and SCDs for DVT prophylaxis Code status: Patient wants to be full code Plan of care was discussed with patient and her daughter who was present in room during rounds
[2017-06-04] MEDS: Pantoprazole 40 MG Tab.CR PO SCH (11:44)
[2017-06-04] MEDS: hydrALAZINE 25 MG Tab PO SCH ×2 (11:44→18:05)
[2017-06-04] MEDS: Calcium Carbonate/Vitamin D3 1250 MG-200 Unit Tab PO SCH (20:53)
[2017-06-05] MEDS: hydrALAZINE 25 MG Tab PO SCH ×3 (02:17→17:10)
[2017-06-05] MEDS: Pantoprazole 40 MG Tab.CR PO SCH (06:37)
[2017-06-05] MEDS: Metoprolol Tartrate 50 MG Tab PO SCH ×2 (08:14→20:42)
[2017-06-05] MEDS: Losartan 50 MG Tab PO SCH (08:14)
[2017-06-05] MEDS: Calcium Carbonate/Vitamin D3 1250 MG-200 Unit Tab PO SCH ×2 (08:15→20:42)
[2017-06-05 09:16] LABS: CHLORIDE,CL 101 mmol/L (101-111); SODIUM,NA 132 mmol/L (135-145)
--- NOTE | 2017-06-05 09:39 | PCM.PN ---
- General Info Date of Service: 06/05/17 Admission Dx/Problem (Free Text): Admission Diagnosis/Problem Admission Diagnosis/Problem Confusion/uncontrolled hypertension Subjective Update: Pt feels much better today and has very mild confusion, able to sleep last night and BP is better. she had her AM meals and had BM, She does not have any nausea or vomiting and wants to stay on more night Functional Status: Reports: Pain Controlled, Tolerating Diet, Ambulating, Urinating - Review of Systems General: Reports: Malaise. Denies: Fever, Chills, Appetite HEENT: Denies: Sinus Congestion, Sore Throat, Visual Changes Pulmonary: Denies: Shortness of Breath, Cough, Sputum, Wheezing Cardiovascular: Denies: Chest Pain, Dyspnea on Exertion, Lightheadedness Gastrointestinal: Denies: Abdominal Pain, Diarrhea, Difficulty Swallowing, Nausea, Vomiting Genitourinary: Denies: Dysuria, Burning, Urgency, Flank Pain Musculoskeletal: Denies: Neck Pain, Hand Pain, Back Pain, Leg Pain, Joint Pain Skin: Denies: Jaundice, Bruising, Pruritis, Rash Neurological: Reports: Confusion (mild). Denies: Tingling, Tremors Psychiatric: Reports: Confusion, Anxiety - Patient Data Vitals - Most Recent: Last Vital Signs Temp 36.9 C 06/05/17 08:00 Pulse 67 06/05/17 08:14 Resp 20 06/05/17 08:00 BP 162/59 H 06/05/17 08:14 Pulse Ox 96 06/05/17 08:00 Weight - Most Recent: 44.169 kg I&O - Last 24 Hours: Intake & Output 06/04/17 06/05/17 06/05/17 22:59 06:59 14:59 Intake Total 1045 100 100 Output Total 1150 900 Balance -105 -800 100 Lab Results Last 24 Hours: Laboratory Results - last 24 hr 06/05/17 Range/Units 08:55 Sodium 132 L (135-145) mmol/L Potassium 4.0 (3.6-5.0) mmol/L Chloride 101 (101-111) mmol/L Carbon Dioxide 23.0 (21.0-31.0) mmol/L Anion Gap 12.0 BUN 10 (7-18) mg/dL Creatinine 0.6 (0.6-1.3) mg/dL Est Cr Clr Drug Dosing 53.56 mL/min Estimated GFR (MDRD) > 60 Glucose 162 H (74-105) mg/dL Calcium 9.0 (8.4-10.2) mg/dl Med Orders - Current: Current Medications Calcium Carbonate (Calcium Carbonate/Vitamin D 1250 Mg-200 Unit) 1 tab PO BID [facility] Last Admin: 06/05/17 08:15 Dose: 1 tab Hydralazine HCl (Apresoline) 50 mg PO Q8H [facility] Last Admin: 06/05/17 02:17 Dose: 50 mg Losartan Potassium (Cozaar) 100 mg PO DAILY [facility] Last Admin: 06/05/17 08:14 Dose: 100 mg Metoprolol Tartrate (Lopressor) 100 mg PO BID@0900,2100 [facility] Last Admin: 06/05/17 08:14 Dose: 100 mg (Melatonin 3 Mg)*Pt (Own Med*) 3 mg PO BEDTIME PRN PRN Reason: Sleep Last Admin: 06/04/17 20:54 Dose: 3 mg Pantoprazole Sodium (Protonix) 40 mg PO ACBREAKFAST [facility] Last Admin: 06/05/17 06:37 Dose: 40 mg Sodium Chloride (Saline Flush) 10 ml FLUSH ASDIRECTED PRN PRN Reason: Keep Vein Open Discontinued Medications Acetaminophen (Tylenol) 650 mg PO Q4H PRN PRN Reason: Pain (Mild 1-3)/fever Hydralazine HCl (Apresoline) 25 mg PO Q6H PRN PRN Reason: Hypertension Last Admin: 06/04/17 06:36 Dose: 25 mg Sodium Chloride (Normal Saline) 1,000 mls @ 125 mls/hr IV ASDIRECTED [facility] Stop: 06/04/17 00:59 Last Admin: 06/03/17 18:44 Dose: 125 mls/hr Losartan Potassium (Cozaar) 75 mg PO DAILY [facility] Last Admin: 06/04/17 08:47 Dose: 75 mg Losartan Potassium (Cozaar) 25 mg PO ONETIME ONE Stop: 06/04/17 10:46 Last Admin: 06/04/17 11:44 Dose: 25 mg Metoprolol Tartrate (Lopressor) 50 mg PO Q12H [facility] Last Admin: 06/03/17 20:03 Dose: Not Given Metoprolol Tartrate (Lopressor) 50 mg PO BID@0900,2100 [facility] Last Admin: 06/04/17 08:47 Dose: 50 mg Metoprolol Tartrate (Lopressor) 50 mg PO ONETIME ONE Stop: 06/04/17 10:46 Last Admin: 06/04/17 11:45 Dose: 50 mg Ranitidine [Zantac] (150mg) 150 mg PO DAILY PRN PRN Reason: Heartburn Sertraline [Zoloft] (25mg) 25 mg PO BEDTIME [facility] Last Admin: 06/04/17 13:35 Dose: Not Given Ondansetron HCl (Zofran) 4 mg IVPUSH Q6H PRN PRN Reason: Nausea/Vomiting Polyethylene Glycol (Miralax) 17 gm PO DAILY PRN PRN Reason: Constipation Potassium Chloride (Klor-Con 10) 40 meq PO ONETIME ONE Stop: 06/04/17 10:22 Last Admin: 06/04/17 11:43 Dose: 40 meq - Exam Quality Assessment: DVT Prophylaxis. No: Supplemental Oxygen, Urine Catheter General: Alert, Oriented (only has mild confusion), Cooperative, No Acute Distress HEENT: Pupils Equal, Pupils Reactive, Mucous Membr. Moist/[place] Neck: No JVD, No Thyromegaly. No: Thyromegaly Lungs: Clear to Auscultation, Normal Respiratory Effort. No: Crackles, Wheezing Cardiovascular: Regular Rate, Regular Rhythm, Murmurs GI/Abdominal Exam: Normal Bowel Sounds, Soft, Non-Tender, No Organomegaly. No: Rebound, Tender (Female) Exam: Deferred Back Exam: Normal Inspection, Full Range of Motion Extremities: Normal Inspection, No Pedal Edema Skin: Warm, Dry, Intact Neurological: No New Focal Deficit, Normal Gait, Normal Speech Psy/Mental Status: Alert, Normal Affect, Normal Mood - Problem List Review Problem List Initiated/Reviewed/Updated: Yes - My Orders Last 24 Hours: My Active Orders 06/04/17 10:00 Communication Order [RC] ROUTINE 06/04/17 19:00 Melatonin 3 mg PO BEDTIME PRN - Plan Plan:: Impression 81-year-old female who presented with recurrent altered mental status. It seems to be multifactorial, her blood pressure is elevated. Patient seems to have hypertensive urgency. Patient lives by herself. One of her medications on the list is chlorpheniramine which could cause confusion however patient stated that she hasn't taken it for a long time and taken off the med list. stopped also her Zoloft Plan 1. Confusion: The etiology not clear, it's not infectious origin but likely from Medication and uncontrolled BP - Will continue Hydralazine at 50 mg TID -Will continue Metoprolol cornelio 100 mg PO BID [ was at 50 mg PO BID] -Will also continue Losartan at 100 mg daily [ was at 75 mg daily -will check BP q 4 hrs - Stopped chlorpheniramine -Stopped Zoloft [ was at 25 mg qhs] 2. Uncontrolled hypertension: Her BP today is much better , in AM it was at 162/ 59 P 67 - Continue Metoprolol at 100 mg BID[ was at 50 mg BID] -Will continue Losartan at 100 mg daily [ was at 75 mg daily] -Will continue Hydralazine at 50 mg TID ( started on 06/04/17) and will not make any change today in the dosing of Hydralazine - will check BP q2 hrs x 24 hrs 3. Depression with anxiety: I have stopped Zoloft as it may be the contributor to her confusion -Will need evaluation by psychiatrist once discharge 4. GI prophylaxis: Will continue her on Protonix 40 mg daily with breakfast 5. Hypokalemia: This si likely from poor oral intake, has received e potassium chloride 40 meq X 1 dose on 06/04/17 -Recheck potassium in AM is acceptable 6. DVT prophylaxis: MARIAH murillo and SCDs for DVT prophylaxis Code status: Patient wants to be full code Plan of care was discussed with patient and her daughter who was present in room during rounds
[2017-06-06] MEDS: hydrALAZINE 25 MG Tab PO SCH ×2 (02:12→10:02)
[2017-06-06] MEDS: Pantoprazole 40 MG Tab.CR PO SCH (05:06)
[2017-06-06] MEDS ORDERED: Acetaminophen 325 MG Tab PO PRN (06:23)
[2017-06-06] MEDS: Calcium Carbonate/Vitamin D3 1250 MG-200 Unit Tab PO SCH (08:46)
[2017-06-06] MEDS: Metoprolol Tartrate 50 MG Tab PO SCH (08:47)
[2017-06-06] MEDS: Losartan 50 MG Tab PO SCH (08:47)
[2017-06-06 12:22] VITALS: BP 148/47
[2017-06-06] MEDS ORDERED: hydrALAZINE 25 MG Tab PO ONE (15:14)
--- NOTE | 2017-06-14 00:22 | DISCH ---
DISCHARGE DIAGNOSES: 1. Transient confusion, possibly recurrent, resolved. 2. Hypertension, improved. 3. Multiple medication changes made during this admission. 4. Chronic kidney disease. 5. Depression and anxiety. 6. Hyponatremia, mild, chronic. 7. Hypokalemia, resolved. 8. Remainder of past medical history, see admission history and physical. BRIEF HISTORY OF PRESENT ILLNESS: Mrs. Grajeda is a 81-year-old lady, who lives on her own in [place]. A friend noted that she seemed somewhat confused on the day of admission and contacted Iram Cardoso's daughter. She had similar confusion in the past, which the daughter attributed to low sodium. She was brought to the emergency room for further evaluation. She denied any other associated symptoms such as chest pain, shortness of breath, palpitations, headaches, hearing or vision changes, loss of consciousness, or any other constitutional signs and symptoms. She was admitted for further evaluation and management. PERTINENT LABS AND X-RAYS: CBC was unremarkable and stable throughout the visit. Hemoglobin and hematocrit were 13.8 and 40 at discharge. Chemistry showed admission sodium of 132, which remained basically unchanged throughout the admission. Potassium was 3.5 on admission and 4.0 at discharge. Renal function was intact with BUN and creatinine of 10 and 0.6, and GFR of more than 60. Blood sugars were slightly elevated during the admission, but under 200. There is no known history of diabetes. Troponin was negative at less than 0.02. Urinalysis showed cloudy yellow urine with 10 to 20 red cells, 0 to 5 white cells, and rare bacteria. Urine toxicology was negative. Urine culture was obtained and showed 3 colony types and was felt to be contaminants. No further workup was performed. A CT scan of the head was performed without contrast. This showed no acute intracranial processes. When compared to a previous study from January of 2017, there was no significant white matter disease and no significant change. HOSPITAL COURSE: Mrs. Grajeda was admitted and treated for hypertensive urgency. Her blood pressure on initial presentation was elevated at 216/59 and 196/64 and on admission to the floor, 182/58. A number of changes were made during this admission. She had been on chlorpheniramine and this was discontinued because of its possible contribution to confusion, although she stated she really had not been taking it lately. Her sertraline was also discontinued. For her increased blood pressures, adjustments were made. Her losartan was increased to 100 mg daily, her metoprolol tartrate was increased to 100 mg twice a day, and hydralazine 50 mg every 8 hours was added. With changes in blood pressure management, blood pressures improved and were better controlled by the time of discharge. Vital Signs: On the day of discharge, blood pressure was 150/60 and 148/47, pulse 80 and regular, respiratory rate 20 and unlabored, oxygen saturation 99% on room air. She is afebrile. HEENT: Unremarkable. ENT was clear. No JVDs or bruits. No adenopathy. No thyromegaly. Chest: Showed clear but diminished bilateral breath sounds. Heart: Showed regular rate and rhythm. Abdomen: Soft, benign. Extremities: Showed no edema. Neurological: She was intact. We talked to the patient's daughter about having her meds set up and not allowing her mother to do the med fills herself, as this may be part of the problem. She was discharged to home in good condition. Her confusion had resolved, and her blood pressures had improved. She will follow up with her primary care provider, Dr. Ochoa, within the next week. She was given literature regarding her new medication. She will continue her usual diet as tolerated with activity levels as tolerated. We asked her not to drive. We also asked that she monitor her blood pressure at least twice a day, recording results, and bring them with her to any visit she has with Dr. Ochoa so that he can review them and make further adjustments as needed. DISCHARGE MEDICATIONS: 1. Hydralazine 50 mg every 8 hours. 2. Metoprolol tartrate 100 mg twice a day. 3. Losartan 100 mg daily. 4. Melatonin 3 mg at bedtime as needed. 5. Calcium with vitamin D (600 mg + 200 units) one tablet twice a day. 6. Ranitidine 150 mg daily as needed. 7. Metamucil 1 tablespoon daily. ALLERGIES: Amoxicillin, doxycycline, penicillin. CONDITION AT THE TIME OF DISCHARGE: Hemodynamically and neurologically stable. The pharmacist at [facility] was informed of the medication changes. MODL /[id number] [facility]
== END 2017-06-06 15:15 | disposition home or self-care (01) | DRG 948 ==
LOC: DL.ED 12:55 → DL.MS 16:30 → UNDOADMOB 16:30 → DL.MS 06-04 10:30 → OBSVTOIN 06-04 10:30 → INTOOBSV 06-04 10:30
PROVIDERS: ADMIT Family Medicine; ATTEND Family Medicine
DX: R41.0 Disorientation, unspecified (principal); I12.9 Hypertensive chronic kidney disease with stage 1 through stage 4 chronic kidney disease, or unspecified chronic kidney disease; M19.90 Unspecified osteoarthritis, unspecified site; M81.0 Age-related osteoporosis without current pathological fracture; F41.9 Anxiety disorder, unspecified; N18.2 Chronic kidney disease, stage 2 (mild); J44.9 Chronic obstructive pulmonary disease, unspecified; K21.9 Gastro-esophageal reflux disease without esophagitis; J32.9 Chronic sinusitis, unspecified; I16.0 Hypertensive urgency; F41.8 Other specified anxiety disorders; E87.6 Hypokalemia; Z79.899 Other long term (current) drug therapy
CPT/HCPCS: 36415 ×2; 70450; 80048; 80053; 80305; 81001; 82962; 84484; 85025 ×2; 87086; 99283; 99285; A9270 ×5; J7030; J7050

== ENCOUNTER 2017-06-10 12:30 | Emergency (ER) | payer MEDICARE, OTHER ==
--- NOTE | 2017-06-10 13:36 | CT ---
Clinical history: 81 year-old 98 pound female with increasing confusion. Rule out stroke this patient reported on [address] scan of the head to have "no acute intracranial process and unchange d" since 13 January 2017 exam. Scan technique: Volume acquisition of data emergency unenhanced CT scan of the head and brain obtaine d with the patient lying supine on the Siemens multi slice scanner [place], [place]. All data archived in the PACS system for storage, reformatting and study. Interpretation: *No new intracranial abnormality identified when compared directly to 03 June and 13 January 2017 exams. Uniformly thick bony calvarium without sign of skull fracture, underlying brain contusion or abnormal extracerebral/intracranial epidural or subdural hematoma. Symmetric age-appropriate atrophy with und erlying mirror-image normal ventricular system. Physiologic midline pineal and symmetric normal cord plexus calcifications. No supratentorial or posterior fossa mass lesion. No hydrocephalus. No atrophy. Brainstem unremarkabl e. No new focal areas of ischemic infarct or encephalomalacia. No acute intracerebral/intraventricular/s ubarachnoid bleed.
[2017-06-10 14:13] LABS: CHLORIDE,CL 88 mmol/L (101-111); SODIUM,NA 120 mmol/L (135-145)
[2017-06-10] MEDS ORDERED: Ondansetron 4 MG/2 ML SDV IV ONE (14:49)
[2017-06-10] MEDS ORDERED: Sodium Chloride 0.9% 10 ML Syringe FLUSH PRN (14:50)
--- NOTE | 2017-06-10 15:04 | EDM.PDOC ---
ED HPI GENERAL MEDICAL PROBLEM - General Chief Complaint: Neuro Symptoms/Deficits Stated Complaint: CONFUSED [phone] Time Seen by Provider: 06/10/17 13:15 Source of Information: Reports: Patient, Family, RN, RN Notes Reviewed History Limitations: Reports: Altered Mental Status - History of Present Illness INITIAL COMMENTS - FREE TEXT/NARRATIVE: Pt presents to the ER with daughter. Daughter states the patient became increasingly confused about 2 weeks ago. Pt was admitted to the hospital for increased confusion on 06/03. She was discharged on 06/06 with no acute findings on her head CT. Daughter states the confusion has increasingly worsened since discharge from the hospital. Daughter states the patient has moments of clarity followed by delerium. Dgt denies change in appetite, fever, chills, N/V/D in the recent past. Pt has developed nausea just since coming to the ER. Onset: Gradual - Related Data Allergies Allergy/AdvReac Type Severity Reaction Status Date / Time amoxicillin Allergy Diarrhea Verified 06/03/17 16:54 doxycycline Allergy Diarrhea Verified 06/03/17 16:54 Penicillins Allergy Diarrhea Verified 06/03/17 16:54 Home Meds: Home Meds Calcium Carbonate/Vitamin D3 [Calcium 600 + Vit D 200] 1 tab PO BID 04/14/17 [ History] Losartan [Cozaar] 100 mg PO DAILY #30 tablet 06/06/17 [Rx] Melatonin 3 mg PO BEDTIME PRN #100 06/06/17 [Rx] Metoprolol Tartrate [Lopressor] 100 mg PO BID@0900,2100 #60 tablet 06/06/17 [Rx] Psyllium Husk [Metamucil] 1 tbsp PO DAILY #1 bottle 06/06/17 [Rx] Ranitidine [Zantac] 150 mg PO DAILY PRN #30 06/06/17 [Rx] hydrALAZINE [Apresoline] 50 mg PO Q8H #90 tablet 06/06/17 [Rx] Past Medical History HEENT History: Reports: Otitis Media, Sinusitis Cardiovascular History: Reports: Hypertension Respiratory History: Reports: COPD Gastrointestinal History: Reports: GERD Genitourinary History: Reports: Other (See Below) Other Genitourinary History: CKD stage II [employer] History: Reports: , Spontaneous Musculoskeletal History: Reports: Osteoporosis, Other (See Below) Other Musculoskeletal History: degenerative joint disease Neurological History: Reports: None Psychiatric History: Reports: Anxiety, Panic Attack Endocrine/Metabolic History: Reports: Osteoporosis Hematologic History: Reports: None Other Hematologic History: hyponatremia requiring hospitalization Immunologic History: Reports: None Oncologic (Cancer) History: Reports: None Dermatologic History: Reports: Psoriasis - Infectious Disease History Infectious Disease History: Reports: Chicken Pox - Past Surgical History Head Surgeries/Procedures: Reports: None HEENT Surgical History: Reports: None Cardiovascular Surgical History: Reports: None Respiratory Surgical History: Reports: None GI Surgical History: Reports: Appendectomy, Cholecystectomy, Colonoscopy Female Surgical History: Reports: None Musculoskeletal Surgical History: Reports: None Social & Family History - Family History Family Medical History: Noncontributory Cardiac: Reports: [place] Oncologic: Reports: Breast - Tobacco Use Smoking Status *Q: Never Smoker Second Hand Smoke Exposure: No - Caffeine Use Caffeine Use: Reports: Coffee, Tea - Recreational Drug Use Recreational Drug Use: No Drug Use in Last 12 Months: No - Living Situation & Occupation Living situation: Reports: Alone Occupation: Retired ED ROS GENERAL - Review of Systems Review Of Systems: ROS reveals no pertinent complaints other than HPI. - Physical Exam Exam: See Below Exam Limited By: No Limitations General Appearance: Alert, WD/WN, No Apparent Distress Eye Exam: Bilateral Eye: EOMI, Normal Inspection Ears: Normal External Exam, Hearing Grossly Normal Nose: Normal Inspection Throat/Mouth: Normal Inspection, Normal Voice, No Airway Compromise Head Exam: Atraumatic, Normocephalic Neck: Normal Inspection, Supple, Non-Tender, Full Range of Motion Respiratory/Chest: No Respiratory Distress, Lungs Clear, Normal Breath Sounds, No Accessory Muscle Use, Chest Non-Tender Cardiovascular: Normal Peripheral Pulses, No Edema, No Gallop, No JVD, No Murmur , No Rub, Irregularly Irregular GI/Abdominal: Normal Bowel Sounds, Soft, Non-Tender, No Organomegaly, No Distention, No Abnormal Bruit, No Mass (Female) Exam: Deferred Rectal (Female) Exam: Deferred Neuro Exam (Abbreviated): Alert, Memory Loss Remote Events, Memory Loss Recent Events, Other (Moments of clarity followed by confusion) Back Exam: Normal Inspection, Full Range of Motion Extremities: Normal Inspection, Normal Range of Motion, Non-Tender, No Pedal Edema, Normal Capillary Refill Psychiatric: Normal Affect, Normal Mood Skin Exam: Warm, Dry, Intact, Normal Color, No Rash EKG INTERPRETATION EKG Date: 06/10/17 Time: 13:41 Rhythm: A-Fib Comparison: NA - No Prior EKG Course - Orders/Labs/Meds Orders: Active Orders 24 hr Category Date Time Status EKG Documentation Completion [RC] URGENT Care 06/10/17 13:41 Active Peripheral IV Care [RC] . DIRECTED Care 06/10/17 14:50 Active CULTURE BLOOD [BC] Stat Lab 06/10/17 13:45 Received CULTURE BLOOD [BC] Stat Lab 06/10/17 13:49 Received UA W/MICROSCOPIC [URIN] Stat Lab 06/10/17 13:13 Uncollected Sodium Chloride 0.9% [Saline Flush] Med 06/10/17 14:50 Active 10 ml FLUSH ASDIRECTED PRN Blood Culture x2 Reflex Set [OM.PC] Stat Oth 06/10/17 13:13 Ordered Peripheral IV Insertion Adult [OM.PC] Stat Oth 06/10/17 14:50 Ordered Medication Orders Sodium Chloride (Saline Flush) 10 ml FLUSH ASDIRECTED PRN PRN Reason: Keep Vein Open Labs: Laboratory Tests 06/10/17 06/10/17 06/10/17 Range/Units 13:30 13:45 13:45 WBC 8.0 (5.0-10.0) 10^3/uL RBC 4.42 (4.2-5.4) 10^6/uL Hgb 13.2 (12.0-16.0) g/dL Hct 37.5 (37.0-47.0) % MCV 84.8 (80-100) fL MCH 29.9 (27.0-34.0) pg MCHC 35.2 H (33.0-35.0) g/dL Plt Count 245 D (150-450) 10^3/uL Neut % (Auto) 78.4 H (42.2-75.2) % Lymph % (Auto) 10.9 L (20.5-50.1) % [place] % (Auto) 10.4 H (2-8) % Eos % (Auto) 0.2 L (1.0-3.0) % Baso % (Auto) 0.1 (0.0-1.0) % Sodium 120 L D (135-145) mmol/L Potassium 4.3 (3.6-5.0) mmol/L Chloride 88 L D (101-111) mmol/L Carbon Dioxide 22.0 (21.0-31.0) mmol/L Anion Gap 14.3 BUN 15 (7-18) mg/dL Creatinine 0.5 L (0.6-1.3) mg/dL Est Cr Clr Drug Dosing TNP Estimated GFR (MDRD) > 60 BUN/Creatinine Ratio 30.00 Glucose 172 H (74-105) mg/dL POC Glucose 177 H (83-110) mg/dl Lactic Acid (0.5-2.2) mmol/L Calcium 9.0 (8.4-10.2) mg/dl Total Bilirubin 1.9 H (0.2-1.0) mg/dL AST 52 H (10-42) IU/L ALT 59 (10-60) IU/L Alkaline Phosphatase 82 (42-121) IU/L Troponin I (0.00-0.02) ng/ml Total Protein 6.4 L (6.7-8.2) g/dl Albumin 4.1 (3.2-5.5) g/dl Globulin 2.3 Albumin/Globulin Ratio 1.78 06/10/17 06/10/17 Range/Units 13:45 13:45 WBC (5.0-10.0) 10^3/uL RBC (4.2-5.4) 10^6/uL Hgb (12.0-16.0) g/dL Hct (37.0-47.0) % MCV (80-100) fL MCH (27.0-34.0) pg MCHC (33.0-35.0) g/dL Plt Count (150-450) 10^3/uL Neut % (Auto) (42.2-75.2) % Lymph % (Auto) (20.5-50.1) % [place] % (Auto) (2-8) % Eos % (Auto) (1.0-3.0) % Baso % (Auto) (0.0-1.0) % Sodium (135-145) mmol/L Potassium (3.6-5.0) mmol/L Chloride (101-111) mmol/L Carbon Dioxide (21.0-31.0) mmol/L Anion Gap BUN (7-18) mg/dL Creatinine (0.6-1.3) mg/dL Est Cr Clr Drug Dosing Estimated GFR (MDRD) BUN/Creatinine Ratio Glucose (74-105) mg/dL POC Glucose (83-110) mg/dl Lactic Acid 1.8 (0.5-2.2) mmol/L Calcium (8.4-10.2) mg/dl Total Bilirubin (0.2-1.0) mg/dL AST (10-42) IU/L ALT (10-60) IU/L Alkaline Phosphatase (42-121) IU/L Troponin I 0.05 H* (0.00-0.02) ng/ml Total Protein (6.7-8.2) g/dl Albumin (3.2-5.5) g/dl Globulin Albumin/Globulin Ratio Meds: Medications Generic Name Dose Route Start Last Admin Trade Name Freq PRN Reason Stop Dose Admin Sodium Chloride 10 ml 06/10/17 14:50 Saline Flush FLUSH ASDIRECTED PRN Keep Vein Open Discontinued Medications Generic Name Dose Route Start Last Admin Trade Name Freq PRN Reason Stop Dose Admin Ondansetron HCl 4 mg 06/10/17 14:49 Zofran IV 06/10/17 14:50 ONETIME ONE Departure - Departure Time of Disposition: 15:06 Disposition: DC/Tfer to Acute Hospital 02 Condition: Poor Clinical Impression: Elevated troponin, Hyponatremia, Hypochloremia, Nausea Atrial fibrillation Qualifiers: Atrial fibrillation type: persistent Qualified Code(s): I48.1 - Persistent atrial fibrillation - Discharge Information Referrals: Eli Ochoa MD [Primary Care Provider] - Forms: ED Department Discharge, Interfacility Transfer EMTALA - My Orders Last 24 Hours: My Active Orders 06/10/17 13:13 UA W/MICROSCOPIC [URIN] Stat Blood Culture x2 Reflex Set [OM.PC] Stat 06/10/17 13:41 EKG Documentation Completion [RC] URGENT 06/10/17 13:45 CULTURE BLOOD [BC] Stat 06/10/17 13:49 CULTURE BLOOD [BC] Stat 06/10/17 14:50 Peripheral IV Care [RC] . DIRECTED Sodium Chloride 0.9% [Saline Flush] 10 ml FLUSH ASDIRECTED PRN Peripheral IV Insertion Adult [OM.PC] Stat - Assessment/Plan Last 24 Hours: My Active Orders 06/10/17 13:13 UA W/MICROSCOPIC [URIN] Stat Blood Culture x2 Reflex Set [OM.PC] Stat 06/10/17 13:41 EKG Documentation Completion [RC] URGENT 06/10/17 13:45 CULTURE BLOOD [BC] Stat 06/10/17 13:49 CULTURE BLOOD [BC] Stat 06/10/17 14:50 Peripheral IV Care [RC] . DIRECTED Sodium Chloride 0.9% [Saline Flush] 10 ml FLUSH ASDIRECTED PRN Peripheral IV Insertion Adult [OM.PC] Stat
[2017-06-10 15:42] VITALS: BP 157/56
--- NOTE | 2017-06-15 21:23 | EKG ---
06/10/2017 - DONTE HOLLEY - This 12-lead EKG shows atrial fibrillation with a controlled ventricular rate of 79. Normal axis. No acute ST-segment or T-wave changes. [facility] /[id number]
== END 2017-06-10 15:20 ==
LOC: DL.ED 12:30
DX: E87.1 Hypo-osmolality and hyponatremia (principal); E87.8 Other disorders of electrolyte and fluid balance, not elsewhere classified; I48.1 Persistent atrial fibrillation; R79.89 Other specified abnormal findings of blood chemistry; I12.9 Hypertensive chronic kidney disease with stage 1 through stage 4 chronic kidney disease, or unspecified chronic kidney disease; N18.2 Chronic kidney disease, stage 2 (mild); J44.9 Chronic obstructive pulmonary disease, unspecified; K21.9 Gastro-esophageal reflux disease without esophagitis; F41.0 Panic disorder [episodic paroxysmal anxiety]; Z79.899 Other long term (current) drug therapy; Z88.0 Allergy status to penicillin; Z88.1 Allergy status to other antibiotic agents
CPT/HCPCS: 36415; 70450; 80053; 82962; 83605; 84484; 85025; 87040; 93005; 96374; 99285; J2405; 93010; 99284

== ENCOUNTER 2020-03-25 09:20 | Emergency (ER) | payer MEDICARE, OTHER, MEDICAID ==
[2020-03-25 09:36] VITALS: BP 197/58; PULSE 60
--- NOTE | 2020-03-25 09:42 | EDM.PDOC ---
ED HPI GENERAL MEDICAL PROBLEM - General Stated Complaint: SENT FROM DR. MAHARAJ/ABDOMINAL PAIN Time Seen by Provider: 03/25/20 09:32 Source of Information: Reports: Patient History Limitations: Reports: No Limitations - History of Present Illness INITIAL COMMENTS - FREE TEXT/NARRATIVE: This 84 yo female patient reports to the ED with diffuse abdominal pain. The patient reports her current symptoms started last night. The patient reports she has been having similar symptoms over the past coupe of months. The patient has been seen by Dr. Ochoa for these symptoms in the past. When the patient's daug hter called Dr. Ochoa's office, Dr. Ochoa's nurse advised the patient to come to the ED because the ED can do more tests. Onset: Today Duration: Constant Location: Reports: Abdomen (diffuse) Quality: Reports: Ache, Dull Severity: Moderate Improves with: Reports: None Worsens with: Reports: None Context: Reports: Other Associated Symptoms: Reports: Nausea/Vomiting (Nausea no vomiting) Abdomen Pain Score (Numeric/FACES): 10 - Related Data Allergies Allergy/AdvReac Type Severity Reaction Status Date / Time amoxicillin Allergy Diarrhea Verified 03/25/20 09:27 codeine Allergy Cannot Verified 03/25/20 09:27 Remember doxycycline Allergy Diarrhea Verified 03/25/20 09:27 Penicillins Allergy Diarrhea Verified 03/25/20 09:27 Home Meds: Home Meds Calcium Carbonate/Vitamin D3 [Calcium 600 + Vit D 200] 1 tab PO BID 04/14/17 [History] Losartan [Cozaar] 100 mg PO DAILY #30 tablet 06/06/17 [Rx] Acetaminophen 500 mg PO Q4H PRN 12/29/18 [History] Aspirin [Lo-Dose Aspirin EC] 81 mg PO DAILY 12/29/18 [History] Carboxymethylcellulose Sodium [Thera Tears] 1 drop EYEBOTH TID PRN 12/29/18 [History] Famotidine 20 mg PO BID 12/29/18 [History] Isosorbide Mononitrate [Imdur] 60 mg PO BID 12/29/18 [History] Loratadine [Allergy] 10 mg PO DAILY PRN 12/29/18 [History] Melatonin 3 mg PO BEDTIME PRN 12/29/18 [History] Metoprolol Tartrate [Lopressor] 100 mg PO BID@0800,1800 12/29/18 [History] Psyllium Husk [Metamucil] 1 tsp PO DAILY PRN 12/29/18 [History] hydrALAZINE [Apresoline] 150 mg PO Q8H 12/29/18 [History] Magnesium Oxide 250 mg PO BIDM 7 Days #14 tablet 01/03/19 [Rx] Phosphorus #1 [Neutra-Phos] 250 mg PO BID 7 Days #14 tablet 01/03/19 [Rx] Potassium Chloride [Klor-Con 10] 20 meq PO DAILY 7 Days #7 tab.er 01/03/19 [Rx] Ipratropium Otis 2 spray NS TID PRN 03/25/20 [History] Loperamide [Imodium] 2 mg PO DAILY PRN 03/25/20 [History] Sodium Chloride 1 gm PO BID 03/25/20 [History] Past Medical History HEENT History: Reports: Otitis Media, Sinusitis Cardiovascular History: Reports: Hypertension Respiratory History: Reports: COPD Gastrointestinal History: Reports: GERD Genitourinary History: Reports: Other (See Below) Other Genitourinary History: CKD stage II [employer] History: Reports: , Spontaneous Musculoskeletal History: Reports: Osteoporosis, Other (See Below) Other Musculoskeletal History: degenerative joint disease Neurological History: Reports: None Psychiatric History: Reports: Anxiety, Panic Attack Endocrine/Metabolic History: Reports: Osteoporosis Hematologic History: Reports: None Other Hematologic History: hyponatremia requiring hospitalization Immunologic History: Reports: None Oncologic (Cancer) History: Reports: None Dermatologic History: Reports: Psoriasis - Infectious Disease History Infectious Disease History: Reports: Chicken Pox - Past Surgical History Head Surgeries/Procedures: Reports: None HEENT Surgical History: Reports: None Cardiovascular Surgical History: Reports: None Respiratory Surgical History: Reports: None GI Surgical History: Reports: Appendectomy, Cholecystectomy, Colonoscopy Female Surgical History: Reports: None Musculoskeletal Surgical History: Reports: None Social & Family History - Family History Family Medical History: Noncontributory Cardiac: Reports: VT Oncologic: Reports: Breast - Caffeine Use Caffeine Use: Reports: Coffee, Tea - Living Situation & Occupation Living situation: Reports: Alone Occupation: Retired ED ROS GENERAL - Review of Systems Review Of Systems: Comprehensive ROS is negative, except as noted in HPI. ED EXAM, GI/ABD - Physical Exam Exam: See Below Exam Limited By: No Limitations General Appearance: Alert, WD/WN, Mild Distress Eyes: Bilateral: Normal Appearance, EOMI Ears: Normal External Exam, Normal Canal, Hearing Grossly Normal, Normal TMs Nose: Normal Inspection, Normal Mucosa, No Blood Throat/Mouth: Normal Inspection, Normal Lips, Normal Teeth, Normal Gums, Normal Oropharynx, Normal Voice, No Airway Compromise Head: Atraumatic, Normocephalic Neck: Normal Inspection, Supple, Non-Tender, Full Range of Motion Respiratory/Chest: No Respiratory Distress, Lungs Clear, Normal Breath Sounds, No Accessory Muscle Use, Chest Non-Tender Cardiovascular: Normal Peripheral Pulses, Regular Rate, Rhythm, No Edema, No Gallop, No JVD, No Murmur, No Rub GI/Abdominal Exam: Normal Bowel Sounds, Soft, No Organomegaly, No Distention, No Abnormal Bruit, No Mass, Pelvis Stable, Tender (diffuse) (Female) Exam: Deferred Rectal (Female) Exam: Deferred Back Exam: Normal Inspection, Full Range of Motion, NT Extremities: Normal Inspection, Normal Range of Motion, Non-Tender, Normal Capillary Refill, No Pedal Edema Neurological: Alert Psychiatric: Normal Affect, Normal Mood Skin Exam: Warm, Dry, Intact, Normal Color, No Rash Lymphatic: No Adenopathy Course - Vital Signs Last Recorded V/S: Last Vital Signs Temp 37.2 C 03/25/20 09:27 Pulse 60 03/25/20 09:27 Resp 18 03/25/20 09:27 BP 197/58 H 03/25/20 09:27 Pulse Ox 98 03/25/20 09:27 - Orders/Labs/Meds Orders: Active Orders 24 hr Category Date Time Status CULTURE BLOOD [BC] Stat Lab 03/25/20 09:44 Ordered Labs: Laboratory Tests 03/25/20 03/25/20 03/25/20 Range/Units 09:54 10:03 10:03 WBC 7.6 (5.0-10.0) 10^3/uL RBC 4.52 (4.2-5.4) 10^6/uL Hgb 13.9 (12.0-16.0) g/dL Hct 39.8 (37.0-47.0) % MCV 88.1 D (80-100) fL MCH 30.8 (27.0-34.0) pg MCHC 34.9 (33.0-35.0) g/dL Plt Count 207 (150-450) 10^3/uL Neut % (Auto) 75.5 H (42.2-75.2) % Lymph % (Auto) 12.0 L (20.5-50.1) % [place] % (Auto) 11.6 H (2-8) % Eos % (Auto) 0.8 L (1.0-3.0) % Baso % (Auto) 0.1 (0.0-1.0) % Sodium 137 (136-145) mmol/L Potassium 3.9 (3.5-5.1) mmol/L Chloride 100 (98-107) mmol/L Carbon Dioxide 26 (21-32) mmol/L Anion Gap 14.9 H (7-13) mEq/L BUN 16 (7-18) mg/dL Creatinine 0.81 (0.55-1.02) mg/dL Est Cr Clr Drug Dosing 38.46 mL/min Estimated GFR (MDRD) > 60 BUN/Creatinine Ratio 19.8 (No establ ref range) Glucose 113 H (74-99) mg/dL Lactic Acid (0.4-2.0) mmol/L Calcium 8.9 (8.5-10.1) mg/dL Total Bilirubin 1.3 H (0.2-1.0) mg/dL AST 13 L (15-37) U/L ALT 20 (14-59) U/L Alkaline Phosphatase 75 (46-116) U/L Total Protein 6.7 (6.4-8.2) g/dL Albumin 3.9 (3.4-5.0) g/dL Globulin 2.8 Albumin/Globulin Ratio 1.4 Amylase 54 (25-115) U/L Lipase 87 (73-393) U/L Urine Color Yellow (YELLOW) Urine Appearance Cloudy (CLEAR) Urine pH 8.5 (5.0-9.0) Ur Specific Milo 1.020 (1.005-1.030) Urine Protein Trace H (NEGATIVE) Urine Glucose (UA) Negative (NEGATIVE) Urine Ketones Negative (NEGATIVE) Urine Occult Blood Negative (NEGATIVE) Urine Nitrite Negative (NEGATIVE) Urine Bilirubin Negative (NEGATIVE) Urine Urobilinogen 1.0 (0.2-1.0) mg/dL Ur Leukocyte Esterase Negative (NEGATIVE) Urine RBC Not seen /HPF Urine WBC 0-5 (0-5/HPF) /HPF Ur Epithelial Cells Few (NOT SEEN) /HPF Amorphous Sediment Many H (NOT SEEN) /HPF Urine Bacteria Few (0-FEW/HPF) /HPF Urine Mucus Not seen (NOT SEEN) /LPF 03/25/20 Range/Units 10:03 WBC (5.0-10.0) 10^3/uL RBC (4.2-5.4) 10^6/uL Hgb (12.0-16.0) g/dL Hct (37.0-47.0) % MCV (80-100) fL MCH (27.0-34.0) pg MCHC (33.0-35.0) g/dL Plt Count (150-450) 10^3/uL Neut % (Auto) (42.2-75.2) % Lymph % (Auto) (20.5-50.1) % [place] % (Auto) (2-8) % Eos % (Auto) (1.0-3.0) % Baso % (Auto) (0.0-1.0) % Sodium (136-145) mmol/L Potassium (3.5-5.1) mmol/L Chloride (98-107) mmol/L Carbon Dioxide (21-32) mmol/L Anion Gap (7-13) mEq/L BUN (7-18) mg/dL Creatinine (0.55-1.02) mg/dL Est Cr Clr Drug Dosing mL/min Estimated GFR (MDRD) BUN/Creatinine Ratio (No establ ref range) Glucose (74-99) mg/dL Lactic Acid 1.8 (0.4-2.0) mmol/L Calcium (8.5-10.1) mg/dL Total Bilirubin (0.2-1.0) mg/dL AST (15-37) U/L ALT (14-59) U/L Alkaline Phosphatase (46-116) U/L Total Protein (6.4-8.2) g/dL Albumin (3.4-5.0) g/dL Globulin Albumin/Globulin Ratio Amylase (25-115) U/L Lipase (73-393) U/L Urine Color (YELLOW) Urine Appearance (CLEAR) Urine pH (5.0-9.0) Ur Specific Milo (1.005-1.030) Urine Protein (NEGATIVE) Urine Glucose (UA) (NEGATIVE) Urine Ketones (NEGATIVE) Urine Occult Blood (NEGATIVE) Urine Nitrite (NEGATIVE) Urine Bilirubin (NEGATIVE) Urine Urobilinogen (0.2-1.0) mg/dL Ur Leukocyte Esterase (NEGATIVE) Urine RBC /HPF Urine WBC (0-5/HPF) /HPF Ur Epithelial Cells (NOT SEEN) /HPF Amorphous Sediment (NOT SEEN) /HPF Urine Bacteria (0-FEW/HPF) /HPF Urine Mucus (NOT SEEN) /LPF Meds: Medications Discontinued Medications Generic Name Dose Route Start Last Admin Trade Name Freq PRN Reason Stop Dose Admin Iopamidol 100 ml 03/25/20 10:54 03/25/20 11:51 Isovue-300 (61%) IVPUSH 03/25/20 10:55 75 ml ONETIME ONE Administration Departure - Departure Time of Disposition: 12:30 Disposition: Home, Self-Care 01 Condition: Fair Clinical Impression: Diverticulosis large intestine w/o perforation or abscess w/bleeding - Discharge Information *PRESCRIPTION DRUG MONITORING PROGRAM REVIEWED*: Not Applicable *COPY OF PRESCRIPTION DRUG MONITORING REPORT IN PATIENT MARY JO: Not Applicable Instructions: Abdominal Pain, Adult, [id number] Forms: ED Department Discharge Care Plan Goals: The patient and her daughter were advised of the examination, lab and CT results during the visit. The patient was encouraged to increase her physical activity. If the patient has any additional symptoms or concerns, the patient should either return to the emergency department or visit her primary care facility. Sepsis Event Note (ED) - Evaluation Sepsis Screening Result: No Definite Risk - Focused Exam Vital Signs: Vital Signs Temp Pulse Resp BP Pulse Ox 03/25/20 09:27 37.2 C 60 18 197/58 H 98 - My Orders Last 24 Hours: My Active Orders 03/25/20 09:44 CULTURE BLOOD [BC] Stat - Assessment/Plan Last 24 Hours: My Active Orders 03/25/20 09:44 CULTURE BLOOD [BC] Stat
[2020-03-25 10:29] LABS: ANION GAP 14.9 mEq/L (7-13); CHLORIDE,CL 100 mmol/L (98-107); SODIUM,NA 137 mmol/L (136-145)
[2020-03-25] MEDS ORDERED: Iopamidol 612 MG/ML 100 ML Bottle IVPUSH ONE (10:54)
--- NOTE | 2020-03-25 12:22 | CT ---
PROCEDURE INFORMATION: Exam: CT Abdomen And Pelvis With Contrast Exam date and time: 03/25/2020 11:41 AM Age: 84 years old Clinical indication: Other: Diffuse abdominal pain; Prior surgery; Surgery date: 6+ months; Surgery type: Gallbladder, appendix TECHNIQUE: Imaging protocol: Computed tomography of the abdomen and pelvis with intravenous contrast. Radiation optimization: All CT scans at this facility use at least one of these dose optimization techniques: automated exposure control; mA and/or kV adjustment per patient size (includes targeted exams where dose is matched to clinical indication); or iterative reconstruction. Contrast material: ISOVUE 300; Contrast volume: 75 ml; Contrast route: INTRAVENOUS (IV); COMPARISON: CT Abdomen Pelvis w Cont 04/04/2017 9:10 AM FINDINGS: Lungs: There is mild right basilar atelectasis. There is no cardiomegaly. There are coronary artery calcifications. Liver: The liver is normal. The sagittal length of the liver is 12 cm. The sagittal length of the spleen the is 5 cm. Gallbladder and bile ducts: Cholecystectomy. Common bile duct is not dilated. Pancreas: Normal. No ductal dilation. Spleen: The spleen is normal. Adrenals: Normal. No mass. Kidneys and ureters: Normal. No hydronephrosis. Stomach and bowel: Unremarkable. No obstruction. Mild diverticulosis. No evidence of diverticulitis. Assessment of mucosal abnormalities limited without oral contrast. Appendix: Appendectomy. Intraperitoneal space: Unremarkable. No free air. No significant fluid collection. Vasculature: There is aortoiliac atherosclerotic calcifications. Bilateral proximal renal artery calcifications. There are splenic artery calcifications. There is no evidence of aneurysm. Lymph nodes: Unremarkable. No enlarged lymph nodes. Urinary bladder: Unremarkable as visualized. Reproductive: Unremarkable as visualized. Bones/joints: There is grade 1 spondylolisthesis of L5 on S1. 2 mm L4 anterolisthesis. There is L4-L5 and L5-S1 moderate degenerative disc disease. Soft tissues: Unremarkable. IMPRESSION: 1. No acute intra-abdominal abnormality. 2. Chronic changes include mild diverticulosis, cholecystectomy, vascular atherosclerotic calcifications, minimal L4 anterolisthesis, grade I L5 spondylolisthesis, L4-S1 moderate degenerative disc disease.
== END 2020-03-25 12:36 | disposition home or self-care (01) ==
LOC: DL.ED 09:20
DX: K57.30 Diverticulosis of large intestine without perforation or abscess without bleeding (principal); I12.9 Hypertensive chronic kidney disease with stage 1 through stage 4 chronic kidney disease, or unspecified chronic kidney disease; N18.2 Chronic kidney disease, stage 2 (mild); J44.9 Chronic obstructive pulmonary disease, unspecified; K21.9 Gastro-esophageal reflux disease without esophagitis; F41.9 Anxiety disorder, unspecified; Z88.1 Allergy status to other antibiotic agents; Z88.5 Allergy status to narcotic agent; Z88.0 Allergy status to penicillin; Z79.82 Long term (current) use of aspirin; Z79.899 Other long term (current) drug therapy
CPT/HCPCS: 36415; 74177; 80053; 81001; 82150; 83605; 83690; 85025; 87040; 99284; Q9967; 99283

== ENCOUNTER 2020-05-02 16:27 | Emergency (ER) | payer MEDICARE, OTHER, MEDICAID ==
--- NOTE | 2020-05-02 19:02 | EDM.PDOC ---
<Cecil Arredondo Markie - Last Filed: 05/02/20 19:07> ED HPI GENERAL MEDICAL PROBLEM - General Chief Complaint: Gastrointestinal Problem Stated Complaint: SEVERE STOMACH PAIN, CAN'T KEEP FLUID DOWN Time Seen by Provider: 05/02/20 18:34 Source of Information: Reports: Patient History Limitations: Reports: No Limitations - History of Present Illness INITIAL COMMENTS - FREE TEXT/NARRATIVE: This 84 yo female patient reports to the ED with diffuse abdominal pain for the past month. The patient reports she was seen in the Clinic on 04/23/20 and started on Levaquin. The patient reports she has completed her course of antibiotics, but her symptoms have not resolved. The patient reports she has been coughing up a "white frothy" sputum. The patient also reports she had an episode of bladder incontinence last night. Onset: Unknown/Unsure Duration: Week(s):, Constant Location: Reports: Abdomen (diffuse abdominal pain) Quality: Reports: Ache, Dull Severity: Moderate Improves with: Reports: None Worsens with: Reports: None Context: Reports: Other Associated Symptoms: Reports: Other (diarrhea) - Related Data Allergies Allergy/AdvReac Type Severity Reaction Status Date / Time amoxicillin Allergy Diarrhea Verified 03/25/20 09:27 codeine Allergy Cannot Verified 03/25/20 09:27 Remember doxycycline Allergy Diarrhea Verified 03/25/20 09:27 Penicillins Allergy Diarrhea Verified 03/25/20 09:27 Home Meds: Home Meds Calcium Carbonate/Vitamin D3 [Calcium 600 + Vit D 200] 1 tab PO BID 04/14/17 [History] Losartan [Cozaar] 100 mg PO DAILY #30 tablet 06/06/17 [Rx] Acetaminophen 500 mg PO Q4H PRN 12/29/18 [History] Aspirin [Lo-Dose Aspirin EC] 81 mg PO DAILY 12/29/18 [History] Carboxymethylcellulose Sodium [Thera Tears] 1 drop EYEBOTH TID PRN 12/29/18 [History] Famotidine 20 mg PO BID 12/29/18 [History] Isosorbide Mononitrate [Imdur] 60 mg PO BID 12/29/18 [History] Loratadine [Allergy] 10 mg PO DAILY PRN 12/29/18 [History] Melatonin 3 mg PO BEDTIME PRN 12/29/18 [History] Metoprolol Tartrate [Lopressor] 100 mg PO BID@0800,1800 12/29/18 [History] Psyllium Husk [Metamucil] 1 tsp PO DAILY PRN 12/29/18 [History] hydrALAZINE [Apresoline] 150 mg PO TID 12/29/18 [History] Magnesium Oxide 250 mg PO BIDM 7 Days #14 tablet 01/03/19 [Rx] Phosphorus #1 [Neutra-Phos] 250 mg PO BID 7 Days #14 tablet 01/03/19 [Rx] Potassium Chloride [Klor-Con 10] 20 meq PO DAILY 7 Days #7 tab.er 01/03/19 [Rx] Ipratropium [place] 2 spray NS TID PRN 03/25/20 [History] Loperamide [Imodium] 2 mg PO DAILY PRN 03/25/20 [History] Sodium Chloride 1 gm PO BID 03/25/20 [History] Past Medical History HEENT History: Reports: Otitis Media, Sinusitis Cardiovascular History: Reports: Hypertension Respiratory History: Reports: COPD Gastrointestinal History: Reports: GERD Genitourinary History: Reports: Other (See Below) Other Genitourinary History: CKD stage II 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: , Spontaneous Musculoskeletal History: Reports: Osteoporosis, Other (See Below) Other Musculoskeletal History: degenerative joint disease Neurological History: Reports: None Psychiatric History: Reports: Anxiety, Panic Attack Endocrine/Metabolic History: Reports: Osteoporosis Hematologic History: Reports: None Other Hematologic History: hyponatremia requiring hospitalization Immunologic History: Reports: None Oncologic (Cancer) History: Reports: None Dermatologic History: Reports: Psoriasis - Infectious Disease History Infectious Disease History: Reports: Chicken Pox - Past Surgical History Head Surgeries/Procedures: Reports: None HEENT Surgical History: Reports: None Cardiovascular Surgical History: Reports: None Respiratory Surgical History: Reports: None GI Surgical History: Reports: Appendectomy, Cholecystectomy, Colonoscopy Female Surgical History: Reports: None Musculoskeletal Surgical History: Reports: None Social & Family History - Family History Family Medical History: No Pertinent Family History Cardiac: Reports: ND Oncologic: Reports: Breast - Caffeine Use Caffeine Use: Reports: Coffee, Tea - Living Situation & Occupation Living situation: Reports: Alone Occupation: Retired ED ROS GENERAL - Review of Systems Review Of Systems: Comprehensive ROS is negative, except as noted in HPI. ED EXAM, GI/ABD - Physical Exam Exam: See Below Exam Limited By: No Limitations General Appearance: Alert, WD/WN, Mild Distress, Thin Eyes: Bilateral: Normal Appearance, EOMI Ears: Normal External Exam, Normal Canal, Hearing Grossly Normal, Normal TMs Nose: Normal Inspection, Normal Mucosa, No Blood Throat/Mouth: Normal Inspection, Normal Lips, Normal Teeth, Normal Gums, Normal Oropharynx, Normal Voice, No Airway Compromise Head: Atraumatic, Normocephalic Neck: Normal Inspection, Supple, Non-Tender, Full Range of Motion Respiratory/Chest: No Respiratory Distress, Lungs Clear, Normal Breath Sounds, No Accessory Muscle Use, Chest Non-Tender Cardiovascular: Normal Peripheral Pulses, Regular Rate, Rhythm, No Edema, No Gallop, No JVD, No Murmur, No Rub GI/Abdominal Exam: Normal Bowel Sounds, No Organomegaly, No Distention, No Abnormal Bruit, No Mass, Pelvis Stable, Tender (diffuse) (Female) Exam: Deferred Rectal (Female) Exam: Deferred Back Exam: Normal Inspection, Full Range of Motion, NT Extremities: Normal Inspection, Normal Range of Motion, Non-Tender, Normal Capillary Refill, No Pedal Edema Neurological: Alert, Oriented, CN II-XII Intact, Normal Cognition, Normal Gait, Normal Reflexes, No Motor/Sensory Deficits Psychiatric: Normal Affect, Normal Mood Skin Exam: Warm, Dry, Intact, Normal Color, No Rash Lymphatic: No Adenopathy Departure - Departure Disposition: Home, Self-Care 01 Clinical Impression: Nausea Abdominal pain Qualifiers: Abdominal location: generalized Qualified Code(s): R10.84 - Generalized abdominal pain UTI (urinary tract infection) Qualifiers: Urinary tract infection type: site unspecified Hematuria presence: without hematuria Qualified Code(s): N39.0 - Urinary tract infection, site not specified - Discharge Information Instructions: Abdominal Pain, Adult, Gvlx-bi-[id number] Forms: ED Department Discharge Additional Instructions: do not take hydralazine, imdur or metoprolol tonight 05/02 Given in ED keflex 250mg twice daily for one week zofran ODT 4mg one every 6 hours as needed for nausea diet as tolerated increase fruit and fiber clinic follow up on Tuesday increase fluids Sepsis Event Note (ED) - Evaluation Sepsis Screening Result: No Definite Risk <Ave Brunner - Last Filed: 05/03/20 02:43> Course - Vital Signs Last Recorded V/S: Last Vital Signs Temp 98.7 F 05/02/20 18:12 Pulse 63 05/02/20 21:33 Resp 19 05/02/20 21:33 BP 189/55 H 05/02/20 21:33 Pulse Ox 99 05/02/20 21:33 - Orders/Labs/Meds Orders: Active Orders 24 hr Category Date Time Status CULTURE BLOOD [BC] Stat Lab 05/02/20 19:08 Received CULTURE URINE [RM] Urgent Lab 05/02/20 20:28 Received Isolation [COMM] Routine Oth 05/02/20 17:55 Active Labs: Laboratory Tests 05/02/20 05/02/20 05/02/20 Range/Units 18:05 19:08 19:08 WBC 5.3 (5.0-10.0) 10^3/uL RBC 4.63 (4.2-5.4) 10^6/uL Hgb 14.4 (12.0-16.0) g/dL Hct 40.3 (37.0-47.0) % MCV 87.0 (80-100) fL MCH 31.1 (27.0-34.0) pg MCHC 35.7 H (33.0-35.0) g/dL Plt Count 181 (150-450) 10^3/uL Neut % (Auto) 72.6 (42.2-75.2) % Lymph % (Auto) 14.8 L (20.5-50.1) % [place] % (Auto) 12.0 H (2-8) % Eos % (Auto) 0.2 L (1.0-3.0) % Baso % (Auto) 0.4 (0.0-1.0) % Sodium 131 L (136-145) mmol/L Potassium 4.0 (3.5-5.1) mmol/L Chloride 95 L (98-107) mmol/L Carbon Dioxide 22 (21-32) mmol/L Anion Gap 18.0 H (7-13) mEq/L BUN 9 (7-18) mg/dL Creatinine 0.71 (0.55-1.02) mg/dL Est Cr Clr Drug Dosing 48.03 mL/min Estimated GFR (MDRD) > 60 BUN/Creatinine Ratio 12.7 (No establ ref range) Glucose 111 H (74-99) mg/dL Lactic Acid (0.4-2.0) mmol/L Calcium 9.0 (8.5-10.1) mg/dL Total Bilirubin 1.6 H (0.2-1.0) mg/dL AST 14 L (15-37) U/L ALT 20 (14-59) U/L Alkaline Phosphatase 72 (46-116) U/L Total Protein 6.5 (6.4-8.2) g/dL Albumin 3.9 (3.4-5.0) g/dL Globulin 2.6 Albumin/Globulin Ratio 1.5 Urine Color (YELLOW) Urine Appearance (CLEAR) Urine pH (5.0-9.0) Ur Specific [place] (1.005-1.030) Urine Protein (NEGATIVE) Urine Glucose (UA) (NEGATIVE) Urine Ketones (NEGATIVE) Urine Occult Blood (NEGATIVE) Urine Nitrite (NEGATIVE) Urine Bilirubin (NEGATIVE) Urine Urobilinogen (0.2-1.0) mg/dL Ur Leukocyte Esterase (NEGATIVE) Urine RBC /HPF Urine WBC (0-5/HPF) /HPF Ur Epithelial Cells (NOT SEEN) /HPF Amorphous Sediment (NOT SEEN) /HPF Urine Bacteria (0-FEW/HPF) /HPF Urine Mucus (NOT SEEN) /LPF SARS CoV-2 RNA Rapid ANUJA Negative (NEGATIVE) 05/02/20 05/02/20 Range/Units 19:08 20:28 WBC (5.0-10.0) 10^3/uL RBC (4.2-5.4) 10^6/uL Hgb (12.0-16.0) g/dL Hct (37.0-47.0) % MCV (80-100) fL MCH (27.0-34.0) pg MCHC (33.0-35.0) g/dL Plt Count (150-450) 10^3/uL Neut % (Auto) (42.2-75.2) % Lymph % (Auto) (20.5-50.1) % [place] % (Auto) (2-8) % Eos % (Auto) (1.0-3.0) % Baso % (Auto) (0.0-1.0) % Sodium (136-145) mmol/L Potassium (3.5-5.1) mmol/L Chloride (98-107) mmol/L Carbon Dioxide (21-32) mmol/L Anion Gap (7-13) mEq/L BUN (7-18) mg/dL Creatinine (0.55-1.02) mg/dL Est Cr Clr Drug Dosing mL/min Estimated GFR (MDRD) BUN/Creatinine Ratio (No establ ref range) Glucose (74-99) mg/dL Lactic Acid 1.3 (0.4-2.0) mmol/L Calcium (8.5-10.1) mg/dL Total Bilirubin (0.2-1.0) mg/dL AST (15-37) U/L ALT (14-59) U/L Alkaline Phosphatase (46-116) U/L Total Protein (6.4-8.2) g/dL Albumin (3.4-5.0) g/dL Globulin Albumin/Globulin Ratio Urine Color Yellow (YELLOW) Urine Appearance Cloudy (CLEAR) Urine pH 7.5 (5.0-9.0) Ur Specific [place] 1.020 (1.005-1.030) Urine Protein Negative (NEGATIVE) Urine Glucose (UA) Negative (NEGATIVE) Urine Ketones 15 H (NEGATIVE) Urine Occult Blood Trace-intact H (NEGATIVE) Urine Nitrite Negative (NEGATIVE) Urine Bilirubin Negative (NEGATIVE) Urine Urobilinogen 0.2 (0.2-1.0) mg/dL Ur Leukocyte Esterase Moderate H (NEGATIVE) Urine RBC 0-5 /HPF Urine WBC 10-20 H (0-5/HPF) /HPF Ur Epithelial Cells Rare (NOT SEEN) /HPF Amorphous Sediment Moderate H (NOT SEEN) /HPF Urine Bacteria Few (0-FEW/HPF) /HPF Urine Mucus Rare (NOT SEEN) /LPF SARS CoV-2 RNA Rapid ANUJA (NEGATIVE) Meds: Medications Discontinued Medications Generic Name Dose Route Start Last Admin Trade Name Freq PRN Reason Stop Dose Admin Cephalexin 250 mg 05/02/20 21:07 05/02/20 21:26 Keflex PO 05/02/20 21:08 250 mg ONETIME ONE Administration Hydralazine HCl 150 mg 05/02/20 20:43 05/02/20 21:00 Apresoline PO 05/02/20 20:44 150 mg ONETIME ONE Administration Iopamidol 100 ml 05/02/20 19:44 05/02/20 20:01 Isovue-300 (61%) IVPUSH 05/02/20 19:45 Not Given ONETIME ONE Isosorbide Mononitrate 60 mg 05/02/20 20:41 05/02/20 20:58 Imdur PO 05/02/20 20:42 60 mg ONETIME ONE Administration Metoprolol Tartrate 100 mg 05/02/20 20:41 05/02/20 20:59 Lopressor PO 05/02/20 20:42 100 mg ONETIME ONE Administration Ondansetron HCl 4 mg 05/02/20 21:12 05/02/20 21:23 Zofran Odt PO 05/02/20 21:13 4 mg ONETIME ONE Administration Departure - Departure Time of Disposition: 21:13 Condition: Good - Discharge Information *PRESCRIPTION DRUG MONITORING PROGRAM REVIEWED*: No *COPY OF PRESCRIPTION DRUG MONITORING REPORT IN PATIENT MARY JO: No Sepsis Event Note (ED) - Focused Exam Vital Signs: Vital Signs Temp Pulse Pulse Resp BP BP Pulse Ox 05/02/20 21:33 63 19 189/55 H 99 05/02/20 21:00 212/65 H 05/02/20 20:59 64 212/65 H 05/02/20 18:12 98.7 F 56 L 20 167/61 H 97
[2020-05-02 19:37] LABS: CHLORIDE,CL 95 mmol/L (98-107); SODIUM,NA 131 mmol/L (136-145)
[2020-05-02] MEDS ORDERED: Iopamidol 612 MG/ML 100 ML Bottle IVPUSH ONE (19:44)
--- NOTE | 2020-05-02 20:33 | CT ---
PROCEDURE INFORMATION: Exam: CT Abdomen And Pelvis Without Contrast Exam date and time: 05/02/2020 8:09 PM Age: 84 years old Clinical indication: Other: HX diverticulosis--on leviquin x 10 days, wbc 5,400; Additional info: Abdominal pain nausea TECHNIQUE: Imaging protocol: Computed tomography of the abdomen and pelvis without contrast. Radiation optimization: All CT scans at this facility use at least one of these dose optimization techniques: automated exposure control; mA and/or kV adjustment per patient size (includes targeted exams where dose is matched to clinical indication); or iterative reconstruction. COMPARISON: CT Abdomen Pelvis w Cont 03/25/2020 11:41 AM FINDINGS: Lungs: Linear atelectasis or scarring at each lung base. Heart: There is mild cardiomegaly. Liver: The liver is normal in architecture, without suspicious abnormality. Gallbladder and bile ducts: Gallbladder not seen. Pancreas: The pancreatic parenchyma is normal in bulk and sharply marginated. Duct is not dilated. No calcifications, masses, or abnormal fluid collections. Spleen: Spleen is normal in size. No mass or fluid collection. Adrenal glands: There are no adrenal masses. Kidneys and ureters: Normal in parenchymal bulk. No hydronephrosis or asymmetric perinephric stranding. No solid masses. No stones. Stomach and bowel: Stomach is decompressed. Thickening of gastric wall could be due to nondistention, gastritis, or other.There are no dilated or thickened small bowel loops. Gas and stool are present within colon to the rectum. Appendix: There is no evidence for appendicitis. Intraperitoneal space: No ascites. No abscess. No inflammation within the intra-abdominal fat. No pneumoperitoneum. No mass. Vasculature: There is atherosclerotic calcification of the aorto-iliac tree. There is no abdominal aortic aneurysm. Lymph nodes: No enlarged lymph nodes. Urinary bladder: There is no bladder wall thickening, mass, or calculus. Reproductive: The uterus and ovaries are within normal limits. There are no adenexal masses. Bones/joints: There is age-appropriate spondylosis of the spine. There are no suspicious lytic or osteosclerotic lesions. There are no vertebral compression fractures. Grade 1 anterolisthesis L4 on L5. Soft tissues: See "Intraperitoneal space" finding. IMPRESSION: No sign of acute intra-abdominal pathology.
[2020-05-02] MEDS ORDERED: Metoprolol Tartrate 50 MG Tab PO ONE (20:41)
[2020-05-02] MEDS ORDERED: Isosorbide Mononitrate 60 MG Tab.ER PO ONE (20:41)
[2020-05-02] MEDS ORDERED: hydrALAZINE 25 MG Tab PO ONE (20:43)
[2020-05-02] MEDS ORDERED: Cephalexin 250 MG Cap PO ONE (21:07)
[2020-05-02] MEDS ORDERED: Ondansetron 4 MG Tab.DIS PO ONE (21:12)
[2020-05-02 21:33] VITALS: BP 189/55; PULSE 63
== END 2020-05-02 21:45 | disposition home or self-care (01) ==
LOC: DL.ED 16:27
DX: N39.0 Urinary tract infection, site not specified (principal); R11.0 Nausea; I12.9 Hypertensive chronic kidney disease with stage 1 through stage 4 chronic kidney disease, or unspecified chronic kidney disease; N18.2 Chronic kidney disease, stage 2 (mild); J44.9 Chronic obstructive pulmonary disease, unspecified; K21.9 Gastro-esophageal reflux disease without esophagitis; Z88.1 Allergy status to other antibiotic agents; Z88.5 Allergy status to narcotic agent; Z88.0 Allergy status to penicillin; Z79.82 Long term (current) use of aspirin; Z79.899 Other long term (current) drug therapy; Z20.828 Contact with and (suspected) exposure to other viral communicable diseases
CPT/HCPCS: 36415; 74176; 80053; 81001; 83605; 85025; 87040; 87086; 87804; 99284-25; A9270-GY; U0002

== ENCOUNTER 2020-06-09 06:37 | Day surgery (SDC) | payer MEDICARE, OTHER, MEDICAID ==
[~2020-06-09 06:37] MED LIST: Midazolam 1 MG/ML 2 ML SDV ONE; fentaNYL 100 MCG/2 ML SDV ONE
[2020-06-09] MEDS ORDERED: fentaNYL 100 MCG/2 ML SDV IV ONE ×2 (06:38→07:40)
[2020-06-09] MEDS ORDERED: Midazolam 1 MG/ML 2 ML SDV IV ONE ×2 (06:38→07:42)
[2020-06-09] MEDS ORDERED: Dextrose 5%-0.45% NaCl 1,000 ML IV SCH (07:10)
--- NOTE | 2020-06-09 09:53 | OR ---
DATE: 06/09/2020 PROCEDURE: Esophagogastroduodenoscopy and multiple pinch biopsies. INSTRUMENT USED: [id number] Olympus video panendoscope. PREMEDICATIONS: No oral or topical anesthesia used. Fentanyl 50 mcg intravenous, Versed 1 mg intravenous. Nasal O2 cannula. The procedure was done under pulse oximetry, BP recording, and air tool operator. INDICATION: The patient on longstanding aspirin that continuing dyspepsia and abdominal pain, unexplained, and not responsive to medical measures and acid suppression. Esophagogastroduodenoscopy is performed for detection of any active erosive lesions, Gamble esophagus and/or malignancy also under consideration, H pylori status to be determined, endoscopic hemostasis therapy if needed. DESCRIPTION OF PROCEDURE: The scope was passed with ease. Adequate visualization of the esophagus was made from proximal to distal areas. No upper esophageal lesions identified. No distal esophageal stricture. No uphill or downhill esophageal varices. No Nivia-Mota tear. No evidence of erosive esophagitis by Coke criteria. No esophageal polyp or tumor mass identified. Z-line was seen at around 40 cm distal to the oral verge, configuration consistent with grade 1 by ZAP classification. No proximal gastric varices noted. Gastric fundus examination by retroflexion showed multiple diminutive benign-appearing polyps. No gastric ulcer, malignant mass, or vascular ectasia identified. Gastric antral erosion was noted proximal antrum without bleeding from it. Duodenal bulb showed no ulcer. Visualized second part of the duodenum was unremarkable. Multiple pinch biopsies were obtained from the gastric antrum and proximal body and sent for PyloriTek test for H pylori, and if negative in an hour, tissues to be sent for histopathology. No bleeding was noted from any of the visualized areas at the completion of examination. IMPRESSION: 1. Gastric antral erosion. 2. Diminutive gastric fundus polyps. The patient tolerated the procedure well. [facility] /[id number]
[2020-06-09 12:44] VITALS: BP 180/66; PULSE 62
== END 2020-06-09 09:57 | disposition home or self-care (01) ==
LOC: DL.ENDO 06:37
PROVIDERS: ATTEND Internal Medicine Gastroenterology
DX: K25.9 Gastric ulcer, unspecified as acute or chronic, without hemorrhage or perforation (principal); K31.7 Polyp of stomach and duodenum; I10 Essential (primary) hypertension; K21.9 Gastro-esophageal reflux disease without esophagitis; F41.1 Generalized anxiety disorder; Z79.899 Other long term (current) drug therapy
CPT/HCPCS: 87077; J2250; J3010; J7042

== ENCOUNTER 2020-06-16 10:18 | Observation (INO) | payer MEDICARE, OTHER, MEDICAID ==
[2020-06-16] MEDS ORDERED: Acetaminophen 325 MG Tab PO PRN (10:22)
[2020-06-16] MEDS ORDERED: Ondansetron 4 MG Tab.DIS PO PRN (10:22)
[2020-06-16] MEDS ORDERED: Docusate Sodium 100 MG Cap PO PRN (10:22)
[2020-06-16] MEDS ORDERED: Loratadine 10 MG Tab PO PRN (11:07)
[2020-06-16] MEDS ORDERED: Melatonin 3 MG Tab PO PRN (11:07)
[2020-06-16] MEDS ORDERED: IPRATROPIUM BROMIDE 0.03% NASBOTH PRN (11:07)
[2020-06-16] MEDS ORDERED: Carboxymethylcellulose Sodium 1% Ophth Gel 0.4 ML UD EYEBOTH PRN (11:07)
[2020-06-16 11:17] LABS: ANION GAP 17.6 mEq/L (7-13); CHLORIDE,CL 100 mmol/L (98-107); SODIUM,NA 138 mmol/L (136-145)
--- NOTE | 2020-06-16 11:25 | CR ---
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 INTERPRETATION: 1. Borderline cardiomegaly. No new pulmonary vascular congestion, cephalization of flow, alveolar edema, or dependent pleural fluid accumulation (effusions) compared to 29 December 2018 exam. 2. No new lung mass, hilar lymphadenopathy or focal lobar consolidation (infiltrate/atelectasis). 3. No peripheral "groundglass" interstitial lung densities. 4. No pneumothorax or pneumomediastinum. Conclusion: No acute new cardiopulmonary abnormality.
[2020-06-16] MEDS: Sodium Chloride 0.9% 1,000 ML IV SCH (13:56)
--- NOTE | 2020-06-16 14:58 | HP ---
CHIEF COMPLAINT: Near syncope. HISTORY OF PRESENT ILLNESS: The patient is an 84-year-old female with past medical history of hypertension, DJD, anxiety, and chronic kidney disease, was admitted directly from [facility] from the office of Dr. Ochoa because apparently the patient had a near syncopal episode this morning. She mentioned she was a little bit lightheaded when she got out from her bed going to the bathroom and while she was having a bowel movement, she almost passed out. She denies any chest pain, fever, shortness of breath, focal weakness, diarrhea, nor any other associated symptoms, and because of this, she was sent by Dr. Ochoa for admission and further workup of the near syncopal episode. PAST MEDICAL HISTORY: Remarkable for hypertension, DJD, anxiety, chronic kidney disease, history of hyponatremia, history of abdominal pain, and recently had EGD with Dr. Ochoa. FAMILY HISTORY: Noncontributory. SOCIAL HISTORY: The patient is a resident of the [facility]. She is a nonsmoker and nonalcohol drinker. REVIEW OF SYSTEMS: As in HPI. The rest of the review of systems is negative. HOME MEDICATIONS: Hydralazine 150 mg t.i.d., sodium chloride 1 g p.o. b.i.d., Metamucil, potassium chloride 20 mEq daily, Neutra-Phos 250 mg b.i.d., metoprolol 100 mg b.i.d., melatonin, mag oxide 250 mg b.i.d., losartan 100 mg b.i.d., loratadine 10 mg daily p.r.n., Imodium 2 mg daily p.r.n., Imdur 60 mg b.i.d., and aspirin 81 mg daily. ALLERGIES: Amoxicillin, codeine, doxycycline, and penicillin. PHYSICAL EXAMINATION: General: The patient is very pleasant. She is alert and oriented, not in any acute distress. Vital Signs: Blood pressure is 161/47, pulse of 61, respirations 20, temperature of 98.6, and saturation is 100% on room air. SHEENT: Normocephalic. There are pink palpebral conjunctivae. Sclerae anicteric. Neck: No JVD. No lymphadenopathy. Heart: Regular rate and rhythm. Normal S1 and S2. No gallops. No rubs. Lungs: Equal bilaterally. No crackles, no wheezing. Abdomen: Soft, nontender, bowel sounds positive. Extremities: Negative for any pedal edema. No calf tenderness. IMPRESSION AND PLAN: Near syncope. The patient is going to be admitted to observation telemetry. She will be on rule out myocardial infarction protocol and we will order for an echocardiogram and we will also resume her home medication. The rest of the management as necessary. The patient is a full code. [facility] /[id number]
[2020-06-16] MEDS: METOPROLOL TARTRATE 100 MG PO SCH (18:15)
[2020-06-16] MEDS: MAGNESIUM OXIDE 250 MG PO SCH (18:15)
[2020-06-16] MEDS: ISOSORBIDE MONONITRATE 60 MG PO SCH (20:33)
[2020-06-16] MEDS: PHOSPHORUS PO SCH (20:33)
[2020-06-16] MEDS: SODIUM CHLORIDE 1 GM PO SCH (20:34)
[2020-06-16] MEDS: HYDRALAZINE 100 MG PO SCH (20:34)
[2020-06-17] MEDS: Sodium Chloride 0.9% 1,000 ML IV SCH ×2 (03:08→16:31)
[2020-06-17] MEDS: Omeprazole 20 MG Cap.CR **PT OWN MED PO SCH (05:24)
[2020-06-17 07:08] LABS: ANION GAP 15.7 mEq/L (7-13); CHLORIDE,CL 104 mmol/L (98-107); SODIUM,NA 139 mmol/L (136-145)
[2020-06-17] MEDS: MAGNESIUM OXIDE 250 MG PO SCH ×2 (08:58→19:44)
[2020-06-17] MEDS: Aspirin 81 MG Tab.EC PO SCH (08:59)
[2020-06-17] MEDS: ISOSORBIDE MONONITRATE 60 MG PO SCH ×2 (08:59→20:53)
[2020-06-17] MEDS: LOSARTAN 100 MG PO SCH (09:00)
[2020-06-17] MEDS: HYDRALAZINE 100 MG PO SCH ×3 (09:01→20:53)
[2020-06-17] MEDS: Potassium Chloride 10 MEQ Tab.ER **PT OWN MED PO SCH (09:01)
[2020-06-17] MEDS: SODIUM CHLORIDE 1 GM PO SCH ×2 (09:04→20:55)
[2020-06-17] MEDS: PHOSPHORUS PO SCH ×2 (09:04→20:54)
[2020-06-17] MEDS: METOPROLOL TARTRATE 100 MG PO SCH ×2 (09:05→19:44)
[2020-06-17] MEDS: Enoxaparin 40 MG/0.4 ML Syringe SUBCUT SCH (09:06)
--- NOTE | 2020-06-17 11:33 | PN ---
DATE: 06/17/2020 SUBJECTIVE: The patient is doing well so far, has not had any more episodes of syncope and the patient denies any lightheadedness, chest pain, shortness of breath, nor any other complaints and the patient also denies any dysuria. The patient had an echocardiogram done yesterday. Official report is still pending. LABORATORY DATA: Lab workup this morning, CBC: WBC is 3.2, hemoglobin is 11.8, hematocrit is 33.5, platelet is 152. Chem-6: Calcium is 8.2; the rest of the panel unremarkable. Troponin is less than 0.07. Urinalysis has moderate epithelial cells and many bacteria and trace leukocyte esterase and 15 ketones. OBJECTIVE: Vital Signs: Blood pressure is 165/53, pulse of 54, respirations of 18, temperature of 96.9, saturation is 98%. Heart: Regular rate and rhythm. Normal S1 and S2. No gallops. No rubs. Lungs: Equal bilaterally. No crackles. No wheezing. Abdomen: Soft, nontender. Bowel sounds positive. Extremities: Negative for any pedal edema. No calf tenderness. MEDICATIONS: Reviewed. PLAN: We will continue with her present management. We will await official report of the echocardiogram and if this is unremarkable, then we will discharge the patient back to [facility]. The patient may need ZIO patch or Holter monitor as an outpatient. [facility] /[id number]
[2020-06-17] MEDS: Calcium Carbonate/Vitamin D3 1250 MG-200 Unit Tab PO SCH (21:14)
[2020-06-18] MEDS: Omeprazole 20 MG Cap.CR **PT OWN MED PO SCH (05:44)
[2020-06-18] MEDS: Sodium Chloride 0.9% 1,000 ML IV SCH (05:44)
[2020-06-18] MEDS: MAGNESIUM OXIDE 250 MG PO SCH ×2 (08:51→18:37)
[2020-06-18] MEDS: METOPROLOL TARTRATE 100 MG PO SCH ×2 (08:53→18:34)
[2020-06-18] MEDS: SODIUM CHLORIDE 1 GM PO SCH ×2 (08:54→21:00)
[2020-06-18] MEDS: HYDRALAZINE 100 MG PO SCH ×3 (08:54→21:00)
[2020-06-18] MEDS: ISOSORBIDE MONONITRATE 60 MG PO SCH ×2 (08:55→20:59)
[2020-06-18] MEDS: PHOSPHORUS PO SCH ×2 (08:55→20:59)
[2020-06-18] MEDS: LOSARTAN 100 MG PO SCH (08:55)
[2020-06-18] MEDS: Potassium Chloride 10 MEQ Tab.ER **PT OWN MED PO SCH (08:56)
[2020-06-18] MEDS: Calcium Carbonate/Vitamin D3 1250 MG-200 Unit Tab PO SCH ×2 (08:56→20:59)
[2020-06-18] MEDS: Aspirin 81 MG Tab.EC PO SCH (08:56)
[2020-06-18] MEDS: Enoxaparin 40 MG/0.4 ML Syringe SUBCUT SCH (08:58)
[2020-06-18] MEDS ORDERED: Methylcellulose Powder 479 GM Jar PO SCH (12:00)
--- NOTE | 2020-06-18 12:34 | PCM.PN ---
- General Info Date of Service: 06/18/20 Subjective Update: Patient admitted for evaluation of syncope. Today she was seen and examined. She is doing okay. Reports some dizziness with ambulation but otherwise she is doing okay. Echo report pending Functional Status: Reports: Pain Controlled - Review of Systems General: Reports: No Symptoms HEENT: Reports: No Symptoms Pulmonary: Reports: No Symptoms Cardiovascular: Reports: No Symptoms Gastrointestinal: Reports: No Symptoms Genitourinary: Reports: No Symptoms Musculoskeletal: Reports: No Symptoms Skin: Reports: No Symptoms Neurological: Reports: No Symptoms Psychiatric: Reports: No Symptoms - Patient Data Vitals - Most Recent: Last Vital Signs Temp 97.6 F 06/18/20 08:00 Pulse 62 06/18/20 08:49 Resp 18 06/18/20 08:49 BP 155/50 H 06/18/20 08:49 Pulse Ox 99 06/18/20 08:00 Orthostatic Blood Pressure [ 120/50 Standing] Orthostatic Blood Pressure [ 169/49 Sitting] Orthostatic Blood Pressure [ 147/43 Supine] Weight - Most Recent: 102 lb 6.4 oz I&O - Last 24 Hours: Intake & Output 06/17/20 06/18/20 06/18/20 22:59 06:59 14:59 Intake Total 710 Output Total 2750 Balance -2039 Med Orders - Current: Current Medications Acetaminophen (Tylenol) 650 mg PO Q4H PRN PRN Reason: Pain (Mild 1-3)/fever Artificial Tears (Refresh Celluvisc) 0 each EYEBOTH TID PRN PRN Reason: Dry Eyes Aspirin (Halfprin) 81 mg PO DAILY [facility] Last Admin: 06/18/20 08:56 Dose: 81 mg Documented by: Calcium Carbonate (Calcium Carbonate/Vitamin D 1250 Mg-200 Unit) 1 tab PO BID [facility] Last Admin: 06/18/20 08:56 Dose: 1 tab Documented by: Docusate Sodium (Colace) 100 mg PO BID PRN PRN Reason: Constipation Enoxaparin Sodium (Lovenox) 40 mg SUBCUT DAILY [facility] Last Admin: 06/18/20 08:58 Dose: 40 mg Documented by: Hydroxyzine HCl (Atarax) 10 mg PO QID [facility] Sodium Chloride (Normal Saline) 1,000 mls @ 75 mls/hr IV ASDIRECTED [facility] Last Admin: 06/18/20 05:44 Dose: 75 mls/hr Documented by: Isosorbide Mononitrate (Imdur) 60 mg PO BID [facility] Last Admin: 06/18/20 08:55 Dose: 60 mg Documented by: Loratadine (Claritin) 10 mg PO DAILY PRN PRN Reason: Allergies Magnesium Oxide (Magnesium Oxide) 250 mg PO BIDMEALS [facility] Last Admin: 06/18/20 08:51 Dose: 250 mg Documented by: Melatonin (Melatonin) 3 mg PO BEDTIME PRN PRN Reason: Sleep Methylcellulose (Citrucel Sf) 0 gm PO DAILY@1200 [facility] Ipratropium [place] Nasal 0.03% [place] * Own Med* 2 spray NASBOTH TID PRN PRN Reason: Allergies Omeprazole (Omeprazole) 20 mg PO ACBRK [facility] Last Admin: 06/18/20 05:44 Dose: 20 mg Documented by: Ondansetron HCl (Zofran Odt) 4 mg PO Q4H PRN PRN Reason: nausea, able to take PO Hydralazine 100 Mg (Tab Pt Own Med) 0 each PO TID [facility] Last Admin: 06/18/20 08:54 Dose: 1 each Documented by: Losartan 100 Mg Tab (Pt Own Med) 0 each PO DAILY [facility] Last Admin: 06/18/20 08:55 Dose: 1 each Documented by: Metoprolol Tartrate 100 Mg Tab Pt Own Med 0 each PO BID@0800,1800 [facility] Last Admin: 06/18/20 08:53 Dose: 1 each Documented by: Potassium Chloride (Klor-Con 10) 20 meq PO DAILY [facility] Last Admin: 06/18/20 08:56 Dose: 20 meq Documented by: Sodium Chloride (Sodium Chloride) 1 gm PO BID [facility] Last Admin: 06/18/20 08:54 Dose: 1 gm Documented by: Sodium Phosphate (Neutra-Phos) 250 mg PO BID [facility] Last Admin: 06/18/20 08:55 Dose: 250 mg Documented by: - Exam Quality Assessment: DVT Prophylaxis General: Alert, Oriented HEENT: Pupils Equal, Pupils Reactive, EOMI, Mucous Membr. Moist/[place] Neck: Supple Lungs: Clear to Auscultation, Normal Respiratory Effort Cardiovascular: Regular Rate, Regular Rhythm GI/Abdominal Exam: Normal Bowel Sounds, Soft, Non-Tender, No Organomegaly, No Distention, No Abnormal Bruit, No Mass, Pelvis Stable (Female) Exam: Normal External Exam, Normal Speculum Exam, Normal Bimanual Exam Back Exam: Normal Inspection, Full Range of Motion Extremities: Normal Inspection, Normal Range of Motion, Non-Tender, No Pedal Edema, Normal Capillary Refill Skin: Warm, Dry, Intact Wound/Incisions: Healing Well Neurological: No New Focal Deficit Psy/Mental Status: Alert, Normal Affect, Normal Mood Sepsis Event Note - Evaluation Sepsis Screening Result: No Definite Risk - Focused Exam Vital Signs: Vital Signs Temp Pulse Resp BP BP Pulse Ox 06/18/20 08:49 62 18 155/50 H 06/18/20 08:00 97.6 F 59 L 18 191/52 H 99 06/18/20 04:00 98.3 F 59 L 18 158/62 H 98 - Problem List & Annotations (1) Syncope and collapse SNOMED Code(s): 045901066 Code(s): R55 - SYNCOPE AND COLLAPSE Status: Acute Current Visit: Yes - Problem List Review Problem List Initiated/Reviewed/Updated: Yes - My Orders Last 24 Hours: My Active Orders 06/18/20 10:40 PT Evaluation and Treatment [CONS] Routine 06/18/20 10:57 OT Evaluation and Treatment [CONS] Routine - Plan Plan:: Syncope and collapse Follow-up on echo Physical therapy and Occupational Therapy Possible discharge tomorrow
[2020-06-18] MEDS: hydrOXYzine HCl 10 MG Tab PO SCH ×2 (17:52→17:53)
[2020-06-18] MEDS: CITRUCEL PO SCH (18:32)
[2020-06-19] MEDS: Omeprazole 20 MG Cap.CR **PT OWN MED PO SCH (06:10)
[2020-06-19] MEDS: MAGNESIUM OXIDE 250 MG PO SCH ×2 (08:25→17:37)
[2020-06-19] MEDS: Potassium Chloride 10 MEQ Tab.ER **PT OWN MED PO SCH (08:25)
[2020-06-19] MEDS: LOSARTAN 100 MG PO SCH (08:26)
[2020-06-19] MEDS: ISOSORBIDE MONONITRATE 60 MG PO SCH ×2 (08:26→21:14)
[2020-06-19] MEDS: PHOSPHORUS PO SCH ×2 (08:27→21:14)
[2020-06-19] MEDS: HYDRALAZINE 100 MG PO SCH ×3 (08:27→21:14)
[2020-06-19] MEDS: SODIUM CHLORIDE 1 GM PO SCH ×2 (08:27→21:15)
[2020-06-19] MEDS: METOPROLOL TARTRATE 100 MG PO SCH ×2 (08:28→17:37)
[2020-06-19] MEDS: Enoxaparin 40 MG/0.4 ML Syringe SUBCUT SCH (08:30)
[2020-06-19] MEDS: Calcium Carbonate/Vitamin D3 1250 MG-200 Unit Tab PO SCH ×2 (08:36→21:13)
[2020-06-19] MEDS: Aspirin 81 MG Tab.EC PO SCH (08:36)
[2020-06-19] MEDS ORDERED: Benzocaine/Docusate Sodium 20-283 MG/5 ML Enema RECTAL ONE (10:21)
[2020-06-19] MEDS: amLODIPine 5 MG Tab PO SCH (10:35)
[2020-06-19] MEDS: CITRUCEL PO SCH (12:18)
--- NOTE | 2020-06-19 13:24 | PCM.PN ---
- General Info Date of Service: 06/19/20 Subjective Update: Patient admitted for evaluation of syncope. Today she was seen and examined. She complained of tummy upset this morning. Started last night around 10 PM. She had nausea and abdominal discomfort. She feels like vomiting but has no vomiting. She has not had bowel movement for the past 4 days. Functional Status: Reports: Pain Controlled - Review of Systems General: Reports: No Symptoms HEENT: Reports: No Symptoms Pulmonary: Reports: No Symptoms Cardiovascular: Reports: No Symptoms Gastrointestinal: Reports: Abdominal Pain, Constipation, Nausea Genitourinary: Reports: No Symptoms Musculoskeletal: Reports: No Symptoms Skin: Reports: No Symptoms Neurological: Reports: No Symptoms Psychiatric: Reports: No Symptoms - Patient Data Vitals - Most Recent: Last Vital Signs Temp 99.1 F 06/19/20 08:00 Pulse 64 06/19/20 08:00 Resp 16 06/19/20 08:00 BP 172/56 H 06/19/20 10:35 Pulse Ox 99 06/19/20 08:00 Orthostatic Blood Pressure [ 120/50 Standing] Orthostatic Blood Pressure [ 169/49 Sitting] Orthostatic Blood Pressure [ 147/43 Supine] Weight - Most Recent: 102 lb 6.4 oz I&O - Last 24 Hours: Intake & Output 06/18/20 06/19/20 06/19/20 22:59 06:59 14:59 Intake Total 240 325 Balance 240 325 Med Orders - Current: Current Medications Acetaminophen (Tylenol) 650 mg PO Q4H PRN PRN Reason: Pain (Mild 1-3)/fever Amlodipine Besylate (Norvasc) 5 mg PO DAILY [facility] Last Admin: 06/19/20 10:35 Dose: 5 mg Documented by: Artificial Tears (Refresh Celluvisc) 0 each EYEBOTH TID PRN PRN Reason: Dry Eyes Aspirin (Halfprin) 81 mg PO DAILY [facility] Last Admin: 06/19/20 08:36 Dose: 81 mg Documented by: Calcium Carbonate (Calcium Carbonate/Vitamin D 1250 Mg-200 Unit) 1 tab PO BID [facility] Last Admin: 06/19/20 08:36 Dose: 1 tab Documented by: Docusate Sodium (Colace) 100 mg PO BID PRN PRN Reason: Constipation Enoxaparin Sodium (Lovenox) 40 mg SUBCUT DAILY [facility] Last Admin: 06/19/20 08:30 Dose: 40 mg Documented by: Isosorbide Mononitrate (Imdur) 60 mg PO BID [facility] Last Admin: 06/19/20 08:26 Dose: 60 mg Documented by: Loratadine (Claritin) 10 mg PO DAILY PRN PRN Reason: Allergies Magnesium Oxide (Magnesium Oxide) 250 mg PO BIDMEALS [facility] Last Admin: 06/19/20 08:25 Dose: 250 mg Documented by: Melatonin (Melatonin) 3 mg PO BEDTIME PRN PRN Reason: Sleep Methylcellulose (Citrucel Sf) 0 gm PO DAILY@1200 [facility] Last Admin: 06/19/20 12:18 Dose: 1 dose Documented by: Ipratropium [place] Nasal 0.03% [place] * Own Med* 2 spray NASBOTH TID PRN PRN Reason: Allergies Omeprazole (Omeprazole) 20 mg PO ACBRK [facility] Last Admin: 06/19/20 06:10 Dose: 20 mg Documented by: Ondansetron HCl (Zofran Odt) 4 mg PO Q4H PRN PRN Reason: nausea, able to take PO Last Admin: 06/19/20 04:52 Dose: 4 mg Documented by: Hydralazine 100 Mg (Tab Pt Own Med) 0 each PO TID [facility] Last Admin: 06/19/20 08:27 Dose: 1 each Documented by: Losartan 100 Mg Tab (Pt Own Med) 0 each PO DAILY [facility] Last Admin: 06/19/20 08:26 Dose: 1 each Documented by: Metoprolol Tartrate 100 Mg Tab Pt Own Med 0 each PO BID@0800,1800 [facility] Last Admin: 06/19/20 08:28 Dose: 1 each Documented by: Potassium Chloride (Klor-Con 10) 20 meq PO DAILY [facility] Last Admin: 06/19/20 08:25 Dose: 20 meq Documented by: Sodium Chloride (Sodium Chloride) 1 gm PO BID [facility] Last Admin: 06/19/20 08:27 Dose: 1 gm Documented by: Sodium Phosphate (Neutra-Phos) 250 mg PO BID [facility] Last Admin: 06/19/20 08:27 Dose: 250 mg Documented by: Discontinued Medications Docusate Sodium/Benzocaine (Enemeez Plus Mini Enema) 1 each RECTAL ONETIME ONE Stop: 06/19/20 10:22 Last Admin: 06/19/20 10:36 Dose: 1 each Documented by: Hydroxyzine HCl (Atarax) 10 mg PO QID [facility] Last Admin: 06/18/20 17:53 Dose: Not Given Documented by: Sodium Chloride (Normal Saline) 1,000 mls @ 75 mls/hr IV ASDIRECTED [facility] Last Infusion: 06/18/20 12:00 Dose: 75 mls/hr Documented by: Methylcellulose (Citrucel Sf) 0 gm PO DAILY@1200 [facility] Last Admin: 06/18/20 18:36 Dose: Not Given Documented by: - Exam General: Alert, Oriented HEENT: Pupils Equal, Pupils Reactive, EOMI, Mucous Membr. Moist/[place] Neck: Supple Lungs: Clear to Auscultation, Normal Respiratory Effort Cardiovascular: Regular Rate, Regular Rhythm GI/Abdominal Exam: Normal Bowel Sounds, Soft, Non-Tender, No Organomegaly, No Distention, No Abnormal Bruit, No Mass, Pelvis Stable (Female) Exam: Normal External Exam, Normal Speculum Exam, Normal Bimanual Exam Back Exam: Normal Inspection, Full Range of Motion Extremities: Normal Inspection, Normal Range of Motion, Non-Tender, No Pedal Edema, Normal Capillary Refill Skin: Warm, Dry, Intact Wound/Incisions: Healing Well Neurological: No New Focal Deficit Psy/Mental Status: Alert, Normal Affect, Normal Mood Sepsis Event Note - Evaluation Sepsis Screening Result: No Definite Risk - Focused Exam Vital Signs: Vital Signs Temp Pulse Resp BP BP Pulse Ox 06/19/20 10:35 172/56 H 06/19/20 08:00 99.1 F 64 16 177/56 H 99 06/19/20 04:00 98.0 F 60 16 182/58 H 99 - Problem List & Annotations (1) Syncope and collapse SNOMED Code(s): 933389309 Code(s): R55 - SYNCOPE AND COLLAPSE Status: Acute Current Visit: Yes (2) Gastritis and duodenitis SNOMED Code(s): 327495599 Code(s): K29.90 - GASTRODUODENITIS, UNSPECIFIED, WITHOUT BLEEDING Status: Acute Current Visit: Yes (3) Constipation SNOMED Code(s): 28019527 Code(s): K59.00 - CONSTIPATION, UNSPECIFIED Status: Acute Current Visit: Yes - Problem List Review Problem List Initiated/Reviewed/Updated: Yes - My Orders Last 24 Hours: My Active Orders 06/19/20 09:15 amLODIPine [Norvasc] 5 mg PO DAILY - Plan Plan:: #Acute gastritis #Constipation Antacid as needed Bowel regimen Syncope and collapse Follow-up on echo Physical therapy and Occupational Therapy Possible discharge tomorrow
[2020-06-19] MEDS ORDERED: Magnesium Citrate Solution 296 ML Bottle PO ONE (15:00)
[2020-06-19] MEDS: Lactulose Soln 10 GM/15 ML 30 ML UD Cup PO SCH (17:42)
--- NOTE | 2020-06-19 18:32 | CR ---
PROCEDURE INFORMATION: Exam: XR Abdomen, 1 View Exam date and time: 06/19/2020 6:15 PM Age: 84 years old Clinical indication: Other: Pain; Additional info: Constipation TECHNIQUE: Imaging protocol: XR of the abdomen. Views: Frontal supine view of the abdomen. 1 View. COMPARISON: No relevant prior studies available. FINDINGS: Pleural space: There are no pleural effusions present. Gastrointestinal tract: No over distention of bowel loops is seen. Multiple small nonspecific air-fluid levels are seen in the abdomen. Bones/joints: There is a moderate scoliosis. The bone density is moderately decreased. IMPRESSION: No acute abnormality.
[2020-06-19] MEDS: Sodium Chloride 0.9% 1,000 ML IV SCH (19:20)
[2020-06-20] MEDS: Omeprazole 20 MG Cap.CR **PT OWN MED PO SCH (05:58)
[2020-06-20] MEDS: Sodium Chloride 0.9% 1,000 ML IV SCH (06:02)
[2020-06-20] MEDS: Lactulose Soln 10 GM/15 ML 30 ML UD Cup PO SCH ×2 (07:32→09:10)
[2020-06-20] MEDS: MAGNESIUM OXIDE 250 MG PO SCH (08:10)
[2020-06-20] MEDS: METOPROLOL TARTRATE 100 MG PO SCH (08:11)
[2020-06-20] MEDS: Aspirin 81 MG Tab.EC PO SCH (08:13)
[2020-06-20] MEDS: Calcium Carbonate/Vitamin D3 1250 MG-200 Unit Tab PO SCH (08:13)
[2020-06-20] MEDS: Enoxaparin 40 MG/0.4 ML Syringe SUBCUT SCH (08:14)
[2020-06-20] MEDS: Potassium Chloride 10 MEQ Tab.ER **PT OWN MED PO SCH (08:14)
[2020-06-20] MEDS: PHOSPHORUS PO SCH (08:15)
[2020-06-20] MEDS: SODIUM CHLORIDE 1 GM PO SCH (08:16)
[2020-06-20] MEDS: ISOSORBIDE MONONITRATE 60 MG PO SCH (09:10)
[2020-06-20] MEDS: LOSARTAN 100 MG PO SCH (09:10)
[2020-06-20] MEDS: amLODIPine 5 MG Tab PO SCH (09:10)
[2020-06-20] MEDS: HYDRALAZINE 100 MG PO SCH (09:11)
--- NOTE | 2020-06-20 10:24 | PCM.DCSUM1 ---
Discharge Summary - Hospital Course Free Text/Narrative:: Diarrhea was admitted for evaluation of syncope and collapse. She did have an echo which showed normal left ventricular function with ejection fraction of 55 to 60%. Evaluation has been negative so far. She did not have any more syncope and collapse was on admission. She did well with physical therapy and they recommended discharge back to basic facility. She was also noted to have constipation which resolved with bowel regimen. Patient was safely discharged back to basic care facility with plan to follow-up with PCP. Diagnosis: Stroke: No - Discharge Data Discharge Date: 06/20/20 Discharge Disposition: DC/Tfer to Other 70 Condition: Good - Referral to Home Health Primary Care Physician: Fany Ochoa MD - Discharge Diagnosis/Problem(s) (1) Syncope and collapse SNOMED Code(s): 885518428 ICD Code: R55 - SYNCOPE AND COLLAPSE Status: Acute Current Visit: Yes (2) Gastritis and duodenitis SNOMED Code(s): 365057791 ICD Code: K29.90 - GASTRODUODENITIS, UNSPECIFIED, WITHOUT BLEEDING Status: Acute Current Visit: Yes (3) Constipation SNOMED Code(s): 56675139 ICD Code: K59.00 - CONSTIPATION, UNSPECIFIED Status: Acute Current Visit: Yes - Patient Summary/Data Consults: Consultations 06/18/20 10:40 PT Evaluation and Treatment [CONS] Routine 06/18/20 10:57 OT Evaluation and Treatment [CONS] Routine - Patient Instructions Fluid Restriction: 1500 mL Activity: As Tolerated Driving: May Drive Today Showering/Bathing: May Shower Notify Provider of: Fever, Increased Pain, Swelling and Redness, Nausea and/or Vomiting - Discharge Plan *PRESCRIPTION DRUG MONITORING PROGRAM REVIEWED*: Not Applicable *COPY OF PRESCRIPTION DRUG MONITORING REPORT IN PATIENT MARY JO: Not Applicable Prescriptions/Med Rec: amLODIPine [Norvasc] 5 mg PO DAILY 30 Days tablet Home Medications: Home Meds Losartan [Cozaar] 100 mg PO DAILY #30 tablet 06/06/17 [Rx] Acetaminophen 500 mg PO Q4H PRN 12/29/18 [History] Aspirin [Lo-Dose Aspirin EC] 81 mg PO DAILY 12/29/18 [History] Isosorbide Mononitrate [Imdur] 60 mg PO BID 12/29/18 [History] Loratadine [Allergy] 10 mg PO DAILY PRN 12/29/18 [History] Melatonin 3 mg PO BEDTIME PRN 12/29/18 [History] Metoprolol Tartrate [Lopressor] 100 mg PO BID@0800,1800 12/29/18 [History] hydrALAZINE [Apresoline] 150 mg PO TID 12/29/18 [History] Magnesium Oxide 250 mg PO BIDM 7 Days #14 tablet 01/03/19 [Rx] Phosphorus #1 [Neutra-Phos] 250 mg PO BID 7 Days #14 tablet 01/03/19 [Rx] Potassium Chloride [Klor-Con 10] 20 meq PO DAILY 7 Days #7 tab.er 01/03/19 [Rx] Ipratropium [place] 2 spray NS TID PRN 03/25/20 [History] Loperamide [Imodium] 2 mg PO DAILY PRN 03/25/20 [History] Sodium Chloride 1 gm PO BID 03/25/20 [History] Calcium Carbonate/Vitamin D3 [Calcium 600-Vit D3 200 Tablet] 1 tab PO BID 06/16/20 [History] Carboxymethylcellulose Sodium [Thera Tears] 1 drop EYEBOTH TID 06/16/20 [History] Magnesium Hydroxide [Milk of Magnesia] 30 ml PO DAILY PRN 06/16/20 [History] Methylcellulose [Citrucel] 1 tbsp PO DAILY 06/16/20 [History] Omeprazole 20 mg PO DAILY@0800 06/16/20 [History] amLODIPine [Norvasc] 5 mg PO DAILY 30 Days tablet 06/20/20 [Rx] Oxygen Therapy Mode: Room Air Patient Handouts: Constipation, Adult, [id number], Amlodipine tablets, Syncope, [id number] Referrals: Eli Ochoa MD [Primary Care Provider] - - Discharge Summary/Plan Comment DC Time >30 min.: Yes - General Info Date of Service: 06/20/20 Functional Status: Reports: Pain Controlled - Review of Systems General: Reports: No Symptoms HEENT: Reports: No Symptoms Pulmonary: Reports: No Symptoms Cardiovascular: Reports: No Symptoms Gastrointestinal: Reports: No Symptoms Genitourinary: Reports: No Symptoms Musculoskeletal: Reports: No Symptoms Skin: Reports: No Symptoms Neurological: Reports: No Symptoms Psychiatric: Reports: No Symptoms - Patient Data Vitals - Most Recent: Last Vital Signs Temp 98.1 F 06/20/20 07:55 Pulse 58 L 06/20/20 07:55 Resp 18 06/20/20 07:55 BP 137/40 L 06/20/20 07:55 Pulse Ox 99 06/20/20 07:55 Orthostatic Blood Pressure [ 120/50 Standing] Orthostatic Blood Pressure [ 169/49 Sitting] Orthostatic Blood Pressure [ 147/43 Supine] Weight - Most Recent: 102 lb 6.4 oz I&O - Last 24 hours: Intake & Output 06/19/20 06/20/20 06/20/20 22:59 06:59 14:59 Intake Total 800 Balance 800 Med Orders - Current: Current Medications Acetaminophen (Tylenol) 650 mg PO Q4H PRN PRN Reason: Pain (Mild 1-3)/fever Amlodipine Besylate (Norvasc) 5 mg PO DAILY [facility] Last Admin: 06/20/20 09:10 Dose: Not Given Documented by: Artificial Tears (Refresh Celluvisc) 0 each EYEBOTH TID PRN PRN Reason: Dry Eyes Aspirin (Halfprin) 81 mg PO DAILY [facility] Last Admin: 06/20/20 08:13 Dose: 81 mg Documented by: Calcium Carbonate (Calcium Carbonate/Vitamin D 1250 Mg-200 Unit) 1 tab PO BID [facility] Last Admin: 06/20/20 08:13 Dose: 1 tab Documented by: Docusate Sodium (Colace) 100 mg PO BID PRN PRN Reason: Constipation Enoxaparin Sodium (Lovenox) 40 mg SUBCUT DAILY [facility] Last Admin: 06/20/20 08:14 Dose: 40 mg Documented by: Sodium Chloride (Normal Saline) 1,000 mls @ 100 mls/hr IV ASDIRECTED [facility] Last Admin: 06/20/20 06:02 Dose: 100 mls/hr Documented by: Isosorbide Mononitrate (Imdur) 60 mg PO BID [facility] Last Admin: 06/20/20 09:10 Dose: Not Given Documented by: Lactulose (Cephulac) 15 gm PO Q8H [facility] Last Admin: 06/20/20 09:10 Dose: Not Given Documented by: Loratadine (Claritin) 10 mg PO DAILY PRN PRN Reason: Allergies Magnesium Oxide (Magnesium Oxide) 250 mg PO BIDMEALS [facility] Last Admin: 06/20/20 08:10 Dose: 250 mg Documented by: Melatonin (Melatonin) 3 mg PO BEDTIME PRN PRN Reason: Sleep Methylcellulose (Citrucel Sf) 0 gm PO DAILY@1200 [facility] Last Admin: 06/19/20 12:18 Dose: 1 dose Documented by: Ipratropium [place] Nasal 0.03% [place] * Own Med* 2 spray NASBOTH TID PRN PRN Reason: Allergies Omeprazole (Omeprazole) 20 mg PO ACBRK [facility] Last Admin: 06/20/20 05:58 Dose: 20 mg Documented by: Ondansetron HCl (Zofran Odt) 4 mg PO Q4H PRN PRN Reason: nausea, able to take PO Last Admin: 06/19/20 04:52 Dose: 4 mg Documented by: Hydralazine 100 Mg (Tab Pt Own Med) 0 each PO TID [facility] Last Admin: 06/20/20 09:11 Dose: Not Given Documented by: Losartan 100 Mg Tab (Pt Own Med) 0 each PO DAILY [facility] Last Admin: 06/20/20 09:10 Dose: Not Given Documented by: Metoprolol Tartrate 100 Mg Tab Pt Own Med 0 each PO BID@0800,1800 [facility] Last Admin: 06/20/20 08:11 Dose: 1 each Documented by: Potassium Chloride (Klor-Con 10) 20 meq PO DAILY [facility] Last Admin: 06/20/20 08:14 Dose: 20 meq Documented by: Sodium Chloride (Sodium Chloride) 1 gm PO BID [facility] Last Admin: 06/20/20 08:16 Dose: 1 gm Documented by: Sodium Phosphate (Neutra-Phos) 250 mg PO BID [facility] Last Admin: 06/20/20 08:15 Dose: 250 mg Documented by: Discontinued Medications Docusate Sodium/Benzocaine (Enemeez Plus Mini Enema) 1 each RECTAL ONETIME ONE Stop: 06/19/20 10:22 Last Admin: 06/19/20 10:36 Dose: 1 each Documented by: Hydroxyzine HCl (Atarax) 10 mg PO QID [facility] Last Admin: 06/18/20 17:53 Dose: Not Given Documented by: Sodium Chloride (Normal Saline) 1,000 mls @ 75 mls/hr IV ASDIRECTED [facility] Last Infusion: 06/18/20 12:00 Dose: 75 mls/hr Documented by: Magnesium Citrate (Citrate Of Magnesia) 296 ml PO ONETIME ONE Stop: 06/19/20 15:01 Last Admin: 06/19/20 15:31 Dose: 296 ml Documented by: Methylcellulose (Citrucel Sf) 0 gm PO DAILY@1200 [facility] Last Admin: 06/18/20 18:36 Dose: Not Given Documented by: - Exam General: Reports: Alert, Oriented HEENT: Reports: Pupils Equal, Pupils Reactive, EOMI, Mucous Membr. Moist/[place] Neck: Reports: Supple Lungs: Reports: Clear to Auscultation, Normal Respiratory Effort Cardiovascular: Reports: Regular Rate, Regular Rhythm GI/Abdominal Exam: Normal Bowel Sounds, Soft, Non-Tender, No Organomegaly, No Distention, No Abnormal Bruit, No Mass, Pelvis Stable (Female) Exam: Normal External Exam, Normal Speculum Exam, Normal Bimanual Exam Rectal (Female) Exam: Normal Exam, Normal Rectal Tone Back Exam: Reports: Normal Inspection, Full Range of Motion Extremities: Normal Inspection, Normal Range of Motion, Non-Tender, No Pedal Edema, Normal Capillary Refill Skin: Reports: Warm, Dry, Intact Wound/Incisions: Reports: Healing Well Neurological: Reports: No New Focal Deficit Psy/Mental Status: Reports: Alert, Normal Affect, Normal Mood
[2020-06-20 11:55] VITALS: BP 148/45; PULSE 54
[2020-06-20] MEDS: CITRUCEL PO SCH (13:30)
== END 2020-06-20 13:00 | disposition other institution (70) ==
LOC: DL.MS 10:18 → UNDOADMOB 10:18 → DL.MS 10:22
PROVIDERS: ADMIT Internal Medicine; ATTEND Student in an Organized Health Care Education/Training Program
DX: R55 Syncope and collapse (principal); K29.90 Gastroduodenitis, unspecified, without bleeding; K59.00 Constipation, unspecified; I12.9 Hypertensive chronic kidney disease with stage 1 through stage 4 chronic kidney disease, or unspecified chronic kidney disease; N18.9 Chronic kidney disease, unspecified; F41.9 Anxiety disorder, unspecified; M19.90 Unspecified osteoarthritis, unspecified site; Z20.822 Contact with and (suspected) exposure to COVID-19; Z79.82 Long term (current) use of aspirin; Z88.5 Allergy status to narcotic agent; Z88.1 Allergy status to other antibiotic agents; Z88.0 Allergy status to penicillin; Z79.899 Other long term (current) drug therapy
CPT/HCPCS: 36415; 71045; 74018; 80048; 80053; 81001; 84484; 85025; 85379; 93306; 97162; 97165; A9270; J1650; J7030; U0002; 96372; 96374; G0378

== ENCOUNTER 2024-03-04 10:53 | Emergency (ER) | payer MEDICARE, OTHER, MEDICAID ==
[2024-03-04 10:32] LABS: BASOPHILS PERCENT AUTO 0.3 % (0.0-1.0); EOSINOPHILS PERCENT AUTO 0.5 % (1.0-3.0); HEMATOCRIT 34.4 % (37.0-47.0); HEMOGLOBIN 11.6 g/dL (12.0-16.0); LYMPHOCYTES PERCENT AUTO 9.9 % (20.5-50.1); MEAN CORPUSCULAR HEMOGLOBIN 29.1 pg (27.0-34.0); MEAN CORPUSCULAR HGB CONC 33.7 g/dL (33.0-35.0); MEAN CORPUSCULAR VOLUME 86.4 fL (80-100); MONOCYTES PERCENT AUTO 10.5 % (2-8); NEUTROPHILS PERCENT AUTO 78.8 % (42.2-75.2); PLATELET COUNT,PLT 227 10^3/uL (150-450); RED BLOOD CELL COUNT 3.98 10^6/uL (4.2-5.4); WHITE BLOOD CELL COUNT,WBC 6.5 10^3/uL (5.0-10.0)
[2024-03-04 10:34] VITALS: BP 116/99; PULSE 55
[2024-03-04 10:50] LABS: B-TYPE NATRIURETIC PEPTIDE,BNP 141 pg/ml (0-100)
[2024-03-04 10:51] LABS: ALANINE AMINOTRANSFERASE,ALT 19 U/L (14-59); ALBUMIN 3.1 g/dL (3.4-5.0); ALKALINE PHOSPHATASE 97 U/L (46-116); ANION GAP 10.9 mEq/L (7-13); ASPARTATE AMNIOTRANSFERASE,AST 11 U/L (15-37); BILIRUBIN TOTAL 0.8 mg/dL (0.2-1.0); BLOOD UREA NITROGEN,BUN 14 mg/dL (7-18); BUN/CREATININE RATIO 17.7 (No establ ref range); CALCIUM 8.6 mg/dL (8.5-10.1); CARBON DIOXIDE,CO2 27 mmol/L (21-32); CHLORIDE,CL 97 mmol/L (98-107); CREATININE 0.79 mg/dL (0.55-1.02); EST CRCL DRUG DOSING (CG) 36.72 mL/min; GLUCOSE RANDOM 141 mg/dL (70-99); MAGNESIUM 1.7 mg/dL (1.8-2.4); POTASSIUM,K 3.9 mmol/L (3.5-5.1); PROTEIN TOTAL,TP 5.9 g/dL (6.4-8.2); SODIUM,NA 131 mmol/L (136-145)
[2024-03-04 10:55] LABS: A/G RATIO 1.11; ESTIMATED GFR 73 mL/min (>=60)
[2024-03-04] MEDS: Sodium Chloride 0.9% 1,000 ML IV ONE ×2 (11:02→14:20)
[2024-03-04] MEDS: Sodium Chloride 0.9% 10 ML Syringe FLUSH PRN (11:06)
[2024-03-04] MEDS: Magnesium Sulfate/Water Premix 2 GM in Premix Bag 1 BAG IV ONE (11:32)
[2024-03-04 11:39] LABS: CORONAVIRUS COVID-19 NAA NEGATIVE (NEGATIVE); INFLUENZA A NAA NEGATIVE (NEGATIVE); INFLUENZA B NAA NEGATIVE (NEGATIVE)
[2024-03-04] MEDS: Iopamidol 755 Mg/ML 100 ML Bottle IVPUSH ONE (12:49)
[2024-03-04 13:44] LABS: APPEARANCE,URINE SLIGHTLY CLOUDY (CLEAR); BILIRUBIN,URINE NEGATIVE (NEGATIVE); COLOR,URINE YELLOW (YELLOW); GLUCOSE,URINE NEGATIVE (NEGATIVE); KETONES,URINE NEGATIVE (NEGATIVE); LEUKOCYTE ESTERASE,URINE TRACE (NEGATIVE); NITRITE,URINE NEGATIVE (NEGATIVE); OCCULT BLOOD,URINE NEGATIVE (NEGATIVE); PH,URINE 7.5 (5.0-9.0); PROTEIN,URINE NEGATIVE (NEGATIVE); UROBILINOGEN,URINE 0.2 mg/dL (0.2-1.0)
[2024-03-04] MEDS ORDERED: Nitrofurantoin Monohydrate/Macrocrystalline 100 MG Cap PO ONE (13:54)
[2024-03-04 13:57] LABS: EPITHELIAL CELLS,URINE FEW /HPF (NOT SEEN); RBC,URINE 0-5 /HPF (0-5); WBC,URINE 75-100 /HPF (0-5/HPF)
[2024-03-04 13:58] LABS: BACTERIA,URINE MANY /HPF (0-FEW/HPF); MUCUS,URINE FEW /LPF (NOT SEEN)
[2024-03-04] MEDS: Cephalexin 500 MG Cap PO ONE (14:17)
[2024-03-04] MEDS: Sodium Chloride 0.9% 250 ML IV ONE (14:21)
[2024-03-04] MEDS: Take Home: Cephalexin 500 MG Cap, 6 Cap Pack PO ONE (16:45)
== END 2024-03-04 16:47 | disposition home or self-care (01) ==
LOC: DL.ED 10:53
DX: R55 Syncope and collapse (principal); E86.0 Dehydration; N39.0 Urinary tract infection, site not specified; I10 Essential (primary) hypertension; J44.9 Chronic obstructive pulmonary disease, unspecified; K21.9 Gastro-esophageal reflux disease without esophagitis; Z90.49 Acquired absence of other specified parts of digestive tract; Z86.16 Personal history of COVID-19; Z79.899 Other long term (current) drug therapy; Z88.0 Allergy status to penicillin; Z88.1 Allergy status to other antibiotic agents; Z88.5 Allergy status to narcotic agent
CPT/HCPCS: 0240U; 36415; 70450; 71046; 71275; 72125; 80053; 81001; 83605; 83735; 83880; 84484; 85025; 85379; 87086; 87088; 87186; 93005; 93010; 96361; 96365; 96366; 99284; 99285-25; A9270-GY; J3475; J3490; J7030; Q9967